=== PATIENT | female | born 1955 | race Caucasian/White ===

== ENCOUNTER 2017-03-20 20:10 | Emergency (ER) | payer MEDICAID ==
[2017-03-20 20:18] VITALS: BP 158/69; BMI 33.5
== END 2017-03-20 20:30 | disposition left against medical advice (07) ==
LOC: ER 20:10
DX: R10.84 Generalized abdominal pain (principal)
CPT/HCPCS: 99281

== ENCOUNTER 2017-05-22 15:18 | Emergency (ER) | payer MEDICAID ==
[2017-05-22 15:27] VITALS: BP 142/73; BMI 33.6
--- NOTE | 2017-05-22 16:02 | ED.ABDFE ---
HPI - Time seen Time seen: 15:55 - PCP Primary Care Physician: BONILLA SALAZAR - Complaint Chief Complaint Doctors Comments: Patient admits to a history of constipation using stimulants daily. Chief Complaint:: PT I HAVE BEEN HURTING IN MY ABD FOR A WHILE AND IT HAS JUST BEEN GETTING WORSE.. PT HAS HX DIVERTICULITIS,, - Source History Provided: Patient - Mode of arrival Mode of Arrival: Ambulatory - Timing Onset of Chief Complaint: 05/18/17 PMH - PMH Past Medical History: Yes Past Medical History: Anxiety, Depression, GERD, Hypertension Past Surgical History: Yes Surgical History: Cholecystectomy, COMMUNITY LIAISON Surgery, Other - Family History History of Family Medical Conditions: Yes Family Medical History: Cancer, [place], Coronary Artery Disease, Hypertension - Social History Does patient currently use any type of tobacco product: No Have you used tobacco products in the last 12 months: No Type of Tobacco Use: None Does any household member use tobacco: No Alcohol Use: None Do you use any recreational Drugs:: No Lives With: Family Lives Where: Home - infectious screening In the last 2 months have you had wt loss of >10#?: NO Have you had fever, night sweats or hemotysis?: No Have you traveled outside the country in the last 6 months?: No Isolation: Standard ROS - Review of Systems Eyes: No Symptoms Reported ENTM: No Symptoms Reported Respiratoy: No Symptoms Reported Cardiovascular: No Symptoms Reported Gastrointestinal/Abdominal: No Symptoms Reported Genitourinary: No Symptoms Reported Neurological: No Symptoms Reported Musculoskeletal: No Symptoms Reported Integumentary: No Symptoms Reported Hematologic/Lymphatic: No Symptoms Reported Endocrine: No Symptoms Reported Psychiatric: No Symptoms Reported All Other Systems: Reviewed and Negative PE - Vital Signs Vitals: Temperature 98.6 F Pulse Rate 76 Respiratory Rate 18 Blood Pressure [Left Arm] 184/84 Blood Pressure [Right Arm] 184/82 Blood Pressure 142/73 O2 Sat by Pulse Oximetry 97 - General Limitations: No Limitations General Appearance: Alert, In No Apparent Distress - Head Head Exam: Normal Inspection, Atraumatic - Eyes Eye exam: Normal Appearance, PERRL, EOMI - ENT ENT Exam: Normal Exam - Neck Neck Exam: Normal Inspection - Chest Chest Inspection: Normal Inspection - Respiratory Respiratory Exam: Normal Lung Sounds Bilat Respiratory Exam: Bilateral Clear to Auscultation - Cardiovascular Cardiovascular Exam: Regular Rate, Normal Rhythm - Abdominal Exam Abdominal Exam: Normal Inspection, Normal Bowel Sounds Abdominal Tenderness: Suprapubic. negative: RUQ, RLQ, LUQ, LLQ, Epigastrium, Diffuse, Mild, Moderate, Severe, Other - Rectal Rectal Exam: Deferred - Back Back Exam: Normal Inspection - Extremeties Extremities Exam: Normal Inspection, Full ROM - External Exam: Female: Normal External Exam : Speculum Exam (Female): Normal Speculum Exam : Bimanual Exam (female): Normal Bimanual exam - Neurologic Neurological Exam: Alert, Oriented X3, CN II-XII Intact - Psychiatric Psychiatric Exam: Normal Affect, Normal Mood - Skin Skin Exam: Warm, Dry, Intact ROR - Labs Reviewed Result Diagrams: 05/22/17 16:20 05/22/17 16:20 Laboratory: WBC 13.5 X10^3/uL (3.6-10.0) H 05/22/17 16:20 RBC 4.32 X10^6/uL (3.5-5.4) 05/22/17 16:20 Hgb 12.6 g/dL (12.0-16.0) 05/22/17 16:20 Hct 37.5 % (36.0-47.0) 05/22/17 16:20 MCV 86.8 fL (80.0-100.0) 05/22/17 16:20 MCH 29.1 pg (27.0-34.0) 05/22/17 16:20 MCHC 33.5 g/dL (33.0-35.0) 05/22/17 16:20 RDW 14.7 % (11.6-16.5) 05/22/17 16:20 Plt Count 321 X10^3/uL (150.0-450.0) 05/22/17 16:20 MPV 8.4 fL (7.4-11.0) 05/22/17 16:20 Neut % 75.9 % (42.0-75.0) H 05/22/17 16:20 Lymph % 16.7 % (21.0-51.0) L 05/22/17 16:20 Wheeler % 5.7 % (0.0-13.0) 05/22/17 16:20 Eos % 0.8 % (0.9-2.9) L 08/13/17 16:20 Baso % 0.9 % (0.2-1.0) 05/22/17 16:20 Neut # 10.2 x10^3/uL (2.2-4.8) H 05/22/17 16:20 Lymph # 2.3 X10^3/uL (1.3-2.9) 05/22/17 16:20 Wheeler # 0.8 x10^3/uL (0.3-0.8) 05/22/17 16:20 Eos # 0.1 x10^3/uL (0.0-0.2) 05/22/17 16:20 Baso # 0.1 X10^3/uL (0.0-0.1) 05/22/17 16:20 Absolute Nucleated RBC 0.0 /100WBC 05/22/17 16:20 Sodium 139 mmol/L (136-145) 05/22/17 16:20 Corrected Sodium TNP 05/22/17 16:20 Potassium 3.6 mmol/L (3.5-5.1) 05/22/17 16:20 Chloride 103 mmol/L (98-107) 05/22/17 16:20 Carbon Dioxide 30.3 mmol/L (21-32) 05/22/17 16:20 BUN 29 mg/dL (7-18) H 05/22/17 16:20 Creatinine 1.17 mg/dL (0.55-1.02) H 05/22/17 16:20 Est GFR (MDRD) Af Amer > 60 (>60) 05/22/17 16:20 Est GFR (MDRD) Non-Af 50 (>60) L 05/22/17 16:20 Glucose 100 mg/dL (65-99) H 05/22/17 16:20 Calcium 9.4 mg/dL (8.5-10.1) 05/22/17 16:20 Corrected Calcium TNP 05/22/17 16:20 Total Bilirubin 0.50 mg/dL (0.2-1.0) 05/22/17 16:20 AST 23 Units/L (15-37) 05/22/17 16:20 ALT 24 Units/L (12-78) 05/22/17 16:20 Alkaline Phosphatase 43 Units/L (46-116) L 05/22/17 16:20 Total Protein 8.0 g/dL (6.4-8.2) 05/22/17 16:20 Albumin 3.7 g/dL (3.4-5.0) 05/22/17 16:20 Globulin 4.3 g/dL (2.5-4.5) 05/22/17 16:20 Albumin/Globulin Ratio 0.9 Ratio (1.1-2.1) L 05/22/17 16:20 Amylase 53 Units/L (25-115) 05/22/17 16:20 Lipase 225 Units/L (73-393) 05/22/17 16:20 Specimen Type Clean catch urine 05/22/17 16:18 Urine Color Yellow (YELLOW) 05/22/17 16:18 Urine Appearance Hazy (CLEAR) 05/22/17 16:18 Urine pH 6.5 (5.0 - 8.0) 05/22/17 16:18 Ur Specific [place] 1.010 (1.000-1.030) 05/22/17 16:18 Urine Protein Negative (NEGATIVE) 05/22/17 16:18 Urine Glucose (UA) Negative (NEGATIVE) 05/22/17 16:18 Urine Ketones Negative (NEGATIVE) 05/22/17 16:18 Urine Occult Blood 2+ (NEGATIVE) 05/22/17 16:18 Urine Nitrite Negative (NEGATIVE) 05/22/17 16:18 Urine Bilirubin Negative (NEGATIVE) 05/22/17 16:18 Urine Urobilinogen Normal (NORMAL) 05/22/17 16:18 Ur Leukocyte Esterase 1+ (NEGATIVE) 05/22/17 16:18 Urine RBC 3-5 /HPF (NEGATIVE) 05/22/17 16:18 Urine WBC 0-2 /HPF (NEGATIVE) 05/22/17 16:18 Ur Squamous Epith Cells Rare /HPF (NEGATIVE) 05/22/17 16:18 Urine Bacteria Trace /HPF (NEGATIVE) 05/22/17 16:18 Ur Culture Indicated? No/not indicated 05/22/17 16:18 H. pylori IgG Antibody Negative (NEGATIVE) 05/22/17 16:20 - XRAY XRAY Interpreted by: Radiologist (KUB: negative) - Diagnosis Discharge Problem: UTI (urinary tract infection) Qualifiers: Urinary tract infection type: acute cystitis Hematuria presence: without hematuria Qualified Code(s): N30.00 - Acute cystitis without hematuria Constipation Qualifiers: Constipation type: slow transit constipation Qualified Code(s): K59.01 - Slow transit constipation - Discharge Plan Condition: Stable - Follow ups/Referrals Follow ups/Referrals: MELANI CRYSTAL [Primary Care Provider] - 3 days - Instructions
[2017-05-22 16:29] LABS: BILIRUBIN,URINE NEGATIVE (NEGATIVE); BLOOD/HEMOGLOBIN,URINE 2+ (NEGATIVE); GLUCOSE, URINE NEGATIVE (NEGATIVE); KETONES,URINE NEGATIVE (NEGATIVE); LEUKOCYTE ESTERASE ,URINE 1+ (NEGATIVE); NITRITES,URINE NEGATIVE (NEGATIVE); PH,URINE 6.5 (5.0 - 8.0); PROTEIN,URINE NEGATIVE (NEGATIVE); UROBILINOGEN,URINE NORMAL (NORMAL)
--- NOTE | 2017-05-22 16:37 | RAD ---
HISTORY: Pain Study: KUB Comparison: None Findings: The gas pattern is unremarkable. No renal stones are seen. There are surgical clips along the right upper quadrant and right pelvis. There is no free air and the bones are intact. IMPRESSION: 1. No evidence for acute abdominal pathology identified. Reported By:
[2017-05-22 16:38] LABS: APPEARANCE,URINE HAZY (CLEAR); COLOR,URINE YELLOW (YELLOW)
[2017-05-22 16:39] LABS: BACTERIA,URINE TRACE /HPF (NEGATIVE); SQUAMOUS EPITHELIAL CELL,UR RARE /HPF (NEGATIVE)
[2017-05-22 16:41] LABS: BASOPHILS # (AUTO) 0.1 X10^3/uL (0.0-0.1); BASOPHILS % (AUTO) 0.9 % (0.2-1.0); EOSINOPHILS # (AUTO) 0.1 x10^3/uL (0.0-0.2); EOSINOPHILS % (AUTO) 0.8 % (0.9-2.9); HEMATOCRIT 37.5 % (36.0-47.0); HEMOGLOBIN 12.6 g/dL (12.0-16.0); LYMPHOCYTES # (AUTO) 2.3 X10^3/uL (1.3-2.9); LYMPHOCYTES % (AUTO) 16.7 % (21.0-51.0); MEAN CORPUSCULAR HEMOGLOBIN 29.1 pg (27.0-34.0); MEAN CORPUSCULAR HGB CONC 33.5 g/dL (33.0-35.0); MEAN CORPUSCULAR VOLUME 86.8 fL (80.0-100.0); MEAN PLATELET VOLUME 8.4 fL (7.4-11.0); MONOCYTES # (AUTO) 0.8 x10^3/uL (0.3-0.8); MONOCYTES % (AUTO) 5.7 % (0.0-13.0); NEUTROPHILS # (AUTO) 10.2 x10^3/uL (2.2-4.8); NEUTROPHILS % (AUTO) 75.9 % (42.0-75.0); PLATELET COUNT 321 X10^3/uL (150.0-450.0); RED BLOOD COUNT 4.32 X10^6/uL (3.5-5.4); RED CELL DISTRIBUTION WIDTH 14.7 % (11.6-16.5); WHITE BLOOD COUNT 13.5 X10^3/uL (3.6-10.0)
[2017-05-22 16:53] LABS: AMYLASE 53 Units/L (25-115); LIPASE 225 Units/L (73-393)
[2017-05-22 16:55] LABS: ALANINE AMINOTRANSFERASE 24 Units/L (12-78); ALBUMIN 3.7 g/dL (3.4-5.0); ALKALINE PHOSPHATASE 43 Units/L (46-116); ASPARTATE AMINO TRANSFERASE 23 Units/L (15-37); BLOOD UREA NITROGEN 29 mg/dL (7-18); CALCIUM 9.4 mg/dL (8.5-10.1); CARBON DIOXIDE 30.3 mmol/L (21-32); CHLORIDE 103 mmol/L (98-107); CREATININE 1.17 mg/dL (0.55-1.02); GLUCOSE 100 mg/dL (65-99); SODIUM 139 mmol/L (136-145); eGFR BLACK RACES > 60 (>60); eGFR NON BLACK RACES 50 (>60)
[2017-05-22] MEDS ORDERED: BACTRIM DS TAB PO ONE (17:51)
== END 2017-05-22 17:54 | disposition home or self-care (01) ==
LOC: ER 15:34
DX: N30.00 Acute cystitis without hematuria (principal); K59.01 Slow transit constipation
CPT/HCPCS: 36415; 74000; 80053; 81001; 82150; 83690; 85025; 86677; 99282; 99283

== ENCOUNTER → 2017-05-24 | Outpatient (CLI) | payer MEDICAID ==
[2017-05-22 15:27] VITALS: BP 142/73
== END ==
LOC: LAB 16:04
PROVIDERS: ATTEND Obstetrics & Gynecology Obstetrics
DX: R30.0 Dysuria (principal)
CPT/HCPCS: 87086

== ENCOUNTER 2017-05-25 17:26 | Inpatient (IN) | payer MEDICAID ==
[2017-05-25] MEDS ORDERED: DEMEROL INJ IM ONE (18:12)
[2017-05-25] MEDS ORDERED: ZOFRAN INJ 4 MG VIAL IM ONE (18:12)
--- NOTE | 2017-05-25 18:13 | DR.GENAD ---
HPI - PCP Primary Care Physician: BONILLA - HPI Comment HPI Comment: HISTORY BELOW. - Complaint/Symptoms Chief Complaint Doctors Comments: ABDOMINA PAIN WITH NAUSEA, VOMITING AND CONSTIPATION TIMES 3 DAYS. WORSE TODAY. NOT EATING, NOT KEEPING DOWN FLUID. NOT TAKEN DAILY MEDS TODAY. WAS IN ED 3 DAYS AGO WITH DIARRHEA. Chief Complaint:: PATIENT WAS SEEN IN OUR ER 3 DAYS AGO WITH A COMPLAINT OF DIARRHEA. PATIENT STATED SHE HAS NOT HAD A BOWEL MOVEMENT SINCE THEN THEN. 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, Other - Family History History of Family Medical Conditions: Yes Family Medical History: Cancer, [place], Coronary Artery Disease, Hypertension - Social History Does patient currently use any type of tobacco product: No Have you used tobacco products in the last 12 months: No Type of Tobacco Use: None Does any household member use tobacco: No Alcohol Use: None Do you use any recreational Drugs:: No Lives With: Family Lives Where: Home - infectious screening In the last 2 months have you had wt loss of >10#?: NO Have you had fever, night sweats or hemotysis?: No Have you traveled outside the country in the last 6 months?: No Isolation: Standard ROS - Review of Systems Constitutional: Weakness, Fatigue, Loss of Appetite. negative: Chills, Fever Eyes: No Symptoms Reported ENTM: No Symptoms Reported. negative: Ear Pain, Nose Discharge, Nose Congestion , Throat Pain Respiratoy: No Symptoms Reported. negative: Productive Cough, Non-Productive Cough, Short of Breath, Wheezing, Hemoptysis Cardiovascular: No Symptoms Reported. negative: Chest Pain, Edema Gastrointestinal/Abdominal: Abdominal Pain, Constipation, Nausea, Vomiting Genitourinary: No Symptoms Reported. negative: Dysuria, Frequency, Hematuria Neurological: Headache, Weakness, Dizziness Musculoskeletal: Muscle Pain Integumentary: No Symptoms Reported Hematologic/Lymphatic: No Symptoms Reported Endocrine: No Symptoms Reported All Other Systems: Reviewed and Negative PE - Vital Signs Vitals: Pulse Rate 69 Respiratory Rate 16 Blood Pressure [Left Arm] 184/84 Blood Pressure [Right Arm] 184/82 Blood Pressure 147/74 O2 Sat by Pulse Oximetry 97 - General Limitations: No Limitations General Appearance: Alert - Head Head Exam: Normal Inspection - Eyes Eye exam: Normal Appearance - ENT ENT Exam: Normal External Ear Exam External Ear Exam: Normal External Inspection TM/Canal Exam: Bilateral Normal Nose Exam: Normal Nose Exam Mouth Exam: Normal Inspection Throat Exam: Normal Inspection - Neck Neck Exam: Normal Inspection - Chest Chest Inspection: Symmetric Chest Wall Rise - Respiratory Respiratory Exam: Normal Lung Sounds Bilat Respiratory Exam: Bilateral Rhonchi, Lower Rhonchi - Cardiovascular Cardiovascular Exam: Regular Rate, Normal Rhythm, Normal Heart Sounds - Abdominal Exam Abdominal Exam: Normal Bowel Sounds, Soft, Tenderness Abdominal Tenderness: Diffuse, Moderate - Extremities Extremities Exam: Normal Inspection - Back Back Exam: Normal Inspection - Neurologic Neurological Exam: Alert, Oriented X3, CN II-XII Intact, Reflexes Normal. negative: Motor Sensory Deficit - Psychiatric Psychiatric Exam: Anxious - Skin Skin Exam: Dry MDM - Additional Information Additional Information Obtained From: Family - Differential Diagnosis Differential Diagnosis: ABDOMINAL PAIN, NAUSEA/VOMITING, BOWEL OBSTRUCTION, DIVERTICULOSIS, UTI Course - Treatment Treatment: SEE ORDERS - Consultation Consultation Comments: DISCUSS PATIENT WITH DR. MUNSON. HE WILL ADMIT PATIENT. - Education/Counseling Education/Counseling: Patient, Education Educated On: Treatment, Diagnosis, Needs for Follow Up ROR - Labs Reviewed Laboratory Results Reviewed?: Yes Result Diagrams: 05/25/17 18:18 05/25/17 18:18 Laboratory: WBC 4.9 X10^3/uL (3.6-10.0) 05/25/17 18:18 RBC 4.08 X10^6/uL (3.5-5.4) 05/25/17 18:18 Hgb 12.1 g/dL (12.0-16.0) 05/25/17 18:18 Hct 35.4 % (36.0-47.0) L 05/25/17 18:18 MCV 86.9 fL (80.0-100.0) 05/25/17 18:18 MCH 29.7 pg (27.0-34.0) 05/25/17 18:18 MCHC 34.2 g/dL (33.0-35.0) 05/25/17 18:18 RDW 14.5 % (11.6-16.5) 05/25/17 18:18 Plt Count 327 X10^3/uL (150.0-450.0) 05/25/17 18:18 MPV 8.5 fL (7.4-11.0) 05/25/17 18:18 Neut % 79.2 % (42.0-75.0) H 05/25/17 18:18 Lymph % 11.1 % (21.0-51.0) L 05/25/17 18:18 [place] % 5.8 % (0.0-13.0) 05/25/17 18:18 Eos % 3.0 % (0.9-2.9) H 05/25/17 18:18 Baso % 0.9 % (0.2-1.0) 05/25/17 18:18 Neut # 3.9 x10^3/uL (2.2-4.8) 05/25/17 18:18 Lymph # 0.6 X10^3/uL (1.3-2.9) L 05/25/17 18:18 [place]ver # 0.3 x10^3/uL (0.3-0.8) 05/25/17 18:18 Eos # 0.1 x10^3/uL (0.0-0.2) 05/25/17 18:18 Baso # 0.0 X10^3/uL (0.0-0.1) 05/25/17 18:18 Absolute Nucleated RBC 0.0 /100WBC 05/25/17 18:18 Sodium 136 mmol/L (136-145) 05/25/17 18:18 Corrected Sodium TNP 05/25/17 18:18 Potassium 3.9 mmol/L (3.5-5.1) 05/25/17 18:18 Chloride 100 mmol/L (98-107) 05/25/17 18:18 Carbon Dioxide 26.8 mmol/L (21-32) 05/25/17 18:18 BUN 40 mg/dL (7-18) H 05/25/17 18:18 Creatinine 1.76 mg/dL (0.55-1.02) H 05/25/17 18:18 Est GFR (MDRD) Af Amer 38 (>60) L 05/25/17 18:18 Est GFR (MDRD) Non-Af 31 (>60) L 05/25/17 18:18 Glucose 90 mg/dL (65-99) 05/25/17 18:18 Calcium 9.2 mg/dL (8.5-10.1) 05/25/17 18:18 Corrected Calcium 9.8 mg/dL (8.5-10.1) 05/25/17 18:18 Total Bilirubin 0.50 mg/dL (0.2-1.0) 05/25/17 18:18 AST 78 Units/L (15-37) H 05/25/17 18:18 ALT 60 Units/L (12-78) 05/25/17 18:18 Alkaline Phosphatase 47 Units/L (46-116) 05/25/17 18:18 Total Protein 7.8 g/dL (6.4-8.2) 05/25/17 18:18 Albumin 3.2 g/dL (3.4-5.0) L 05/25/17 18:18 Globulin 4.6 g/dL (2.5-4.5) H 05/25/17 18:18 Albumin/Globulin Ratio 0.7 Ratio (1.1-2.1) L 05/25/17 18:18 Amylase 31 Units/L (25-115) 05/25/17 18:18 Lipase 127 Units/L (73-393) 05/25/17 18:18 - XRAY XRAY Interpreted by: Radiologist XRAY Findings: REPORT DISCUSS WITH PATIENT. - Diagnosis Discharge Problem: Diverticulitis Qualifiers: Diverticulitis site: large intestine Diverticulitis bleeding: without bleeding Diverticulitis complication: without perforation or abscess Qualified Code(s): K57.32 - Diverticulitis of large intestine without perforation or abscess without bleeding Abdominal pain Qualifiers: Abdominal location: generalized Qualified Code(s): R10.84 - Generalized abdominal pain - Discharge Plan Disposition: ADMITTED INPATIENT Condition: Stable - Follow ups/Referrals - Instructions
[2017-05-25 18:27] LABS: BASOPHILS % (AUTO) 0.9 % (0.2-1.0); EOSINOPHILS # (AUTO) 0.1 x10^3/uL (0.0-0.2); HEMATOCRIT 35.4 % (36.0-47.0); HEMOGLOBIN 12.1 g/dL (12.0-16.0); LYMPHOCYTES # (AUTO) 0.6 X10^3/uL (1.3-2.9); LYMPHOCYTES % (AUTO) 11.1 % (21.0-51.0); MEAN CORPUSCULAR HEMOGLOBIN 29.7 pg (27.0-34.0); MEAN CORPUSCULAR HGB CONC 34.2 g/dL (33.0-35.0); MEAN CORPUSCULAR VOLUME 86.9 fL (80.0-100.0); MEAN PLATELET VOLUME 8.5 fL (7.4-11.0); MONOCYTES # (AUTO) 0.3 x10^3/uL (0.3-0.8); MONOCYTES % (AUTO) 5.8 % (0.0-13.0); NEUTROPHILS # (AUTO) 3.9 x10^3/uL (2.2-4.8); NEUTROPHILS % (AUTO) 79.2 % (42.0-75.0); PLATELET COUNT 327 X10^3/uL (150.0-450.0); RED BLOOD COUNT 4.08 X10^6/uL (3.5-5.4); RED CELL DISTRIBUTION WIDTH 14.5 % (11.6-16.5); WHITE BLOOD COUNT 4.9 X10^3/uL (3.6-10.0)
[2017-05-25 18:39] LABS: ALANINE AMINOTRANSFERASE 60 Units/L (12-78); ALBUMIN 3.2 g/dL (3.4-5.0); ALKALINE PHOSPHATASE 47 Units/L (46-116); AMYLASE 31 Units/L (25-115); ASPARTATE AMINO TRANSFERASE 78 Units/L (15-37); BLOOD UREA NITROGEN 40 mg/dL (7-18); CALCIUM 9.2 mg/dL (8.5-10.1); CARBON DIOXIDE 26.8 mmol/L (21-32); CHLORIDE 100 mmol/L (98-107); COR CA(FOR HYPOALB) 9.8 mg/dL (8.5-10.1); CREATININE 1.76 mg/dL (0.55-1.02); GLUCOSE 90 mg/dL (65-99); LIPASE 127 Units/L (73-393); SODIUM 136 mmol/L (136-145); TOTAL PROTEIN 7.8 g/dL (6.4-8.2); eGFR BLACK RACES 38 (>60); eGFR NON BLACK RACES 31 (>60)
--- NOTE | 2017-05-25 19:01 | CT ---
HISTORY: Pain Study: CT abdomen and pelvis without contrast Comparison: 10/22/2015 Technique: Multiple axial images of the abdomen and pelvis were obtained from the lung bases to the pubic symph ysis without the administration of IV contrast. Automated dose control techniques were utilized. Findings: The lung bases are clear. The liver and spleen are normal size and density. The gallbladder has been removed with clips in the gallbladder fossa which is unchanged. The bile ducts, pancreas, and adren als are normal. The kidneys are normal size with no hydronephrosis, renal stone, or mass. The ureter s are normal caliber. There is no adenopathy or ascites. The appendix is not well visualized and the re is no pericecal inflammation. The uterus and ovaries are grossly unremarkable. There are divertic phill scattered throughout the left colon with numerous diverticula and mucosal thickening throughout the sigmoid colon . There is mild stranding and edema around the mid sigmoid colon on the left with mild stranding and edema extending into the left lower pelvis . No extraluminal air is seen . There is no free fluid or free air. No focal fluid collection or mass is seen. The uterus is atrophic and there is no adnexal mass. The bladder is unremarkable. There is no bowel obstruction. The bones are intact. No aggressive osseous lesion is seen. There are some questionable mild serpiginous areas of lucency and sclerosis along both femoral heads superiorly which is slightly more apparent. IMPRESSION: Moderate diverticulosis along the sigmoid region and mild diverticulitis involving the mid sigmoid c olon extending into the left pelvis . No abscess or free fluid is identified. Suggest endoscopy or b arium enema after the patient's symptoms resolve. Status post cholecystectomy which is unchanged. No hydronephrosis or renal stones and no urinary obstruction. Questionable chronic AVN along both femoral heads which is more apparent . Suggest MRI correlation, if indicated clinically.. Reported By:
[2017-05-25] MEDS ORDERED: NS 100 ML IV + SPIKE MINIBAG* 100 ML IV ONE (21:06)
[2017-05-25] MEDS ORDERED: NS 1000 ML 1,000 ML ONE (21:06)
[2017-05-25] MEDS ORDERED: ZOSYN VIAL 3.375 GM IV ONE (21:06)
[2017-05-25] MEDS: ZOSYN VIAL 3.375 GM 3.375 GM in NS 100 ML IV + SPIKE MINIBAG* 100 ML IV SCH (21:14)
[2017-05-25] MEDS: NS 1000 ML 1,000 ML IV SCH (21:15)
[2017-05-25] MEDS: AMBIEN PO PRN (22:39)
[2017-05-26] MEDS: PHENERGAN INJ 25 MG IVP PRN (00:46)
[2017-05-26] MEDS: MORPHINE SULFATE INJ 2 MG IVP PRN ×2 (02:43→20:30)
[2017-05-26] MEDS: ZOSYN VIAL 3.375 GM 3.375 GM in NS 100 ML IV + SPIKE MINIBAG* 100 ML IV SCH ×3 (05:07→22:11)
[2017-05-26] MEDS: ZOFRAN INJ 4 MG VIAL IVP PRN ×2 (05:28→15:29)
[2017-05-26 06:05] LABS: ALANINE AMINOTRANSFERASE 61 Units/L (12-78); ALBUMIN 2.9 g/dL (3.4-5.0); ALKALINE PHOSPHATASE 43 Units/L (46-116); ASPARTATE AMINO TRANSFERASE 77 Units/L (15-37); BLOOD UREA NITROGEN 40 mg/dL (7-18); CALCIUM 8.7 mg/dL (8.5-10.1); CARBON DIOXIDE 27.5 mmol/L (21-32); CHLORIDE 101 mmol/L (98-107); COR CA(FOR HYPOALB) 9.6 mg/dL (8.5-10.1); CREATININE 1.77 mg/dL (0.55-1.02); GLUCOSE 81 mg/dL (65-99); SODIUM 136 mmol/L (136-145); TOTAL PROTEIN 7.1 g/dL (6.4-8.2); eGFR BLACK RACES 38 (>60); eGFR NON BLACK RACES 31 (>60)
[2017-05-26 06:10] LABS: BASOPHILS % (AUTO) 1.2 % (0.2-1.0); EOSINOPHILS # (AUTO) 0.2 x10^3/uL (0.0-0.2); EOSINOPHILS % (AUTO) 4.7 % (0.9-2.9); HEMATOCRIT 32.6 % (36.0-47.0); HEMOGLOBIN 11.1 g/dL (12.0-16.0); LYMPHOCYTES # (AUTO) 0.8 X10^3/uL (1.3-2.9); LYMPHOCYTES % (AUTO) 22.6 % (21.0-51.0); MEAN CORPUSCULAR HEMOGLOBIN 29.5 pg (27.0-34.0); MEAN CORPUSCULAR VOLUME 86.8 fL (80.0-100.0); MONOCYTES # (AUTO) 0.3 x10^3/uL (0.3-0.8); NEUTROPHILS # (AUTO) 2.4 x10^3/uL (2.2-4.8); NEUTROPHILS % (AUTO) 63.5 % (42.0-75.0); PLATELET COUNT 287 X10^3/uL (150.0-450.0); RED BLOOD COUNT 3.76 X10^6/uL (3.5-5.4); RED CELL DISTRIBUTION WIDTH 14.7 % (11.6-16.5); WHITE BLOOD COUNT 3.8 X10^3/uL (3.6-10.0)
[2017-05-26] MEDS: NS 1000 ML 1,000 ML IV SCH ×2 (09:02→17:11)
[2017-05-26 09:19] LABS: CHOL/HDL RATIO 13.9 (0.0-5.0)
[2017-05-26] MEDS ORDERED: BISOPROLOL PO SCH (09:30)
[2017-05-26] MEDS ORDERED: PATIENT'S HOME MEDICATION (Losartan/Hydrochlorothiazide [Hyzaar 100-25 Tablet] 1 TAB) PO SCH (09:30)
[2017-05-26] MEDS ORDERED: HYDROCHLOROTHIAZIDE PO SCH (09:30)
--- NOTE | 2017-05-26 10:07 | US ---
HISTORY: Elevated transaminase level, abdominal pain, prior surgical history of cholecystectomy. Study: Liver ultrasound Comparison: CT abdomen and pelvis done May 25, 2017. Technique: owusu scale and color Doppler imaging of the liver is provided. Findings: The liver is normal in size. There is a slight diffuse increased echogenic appearance of the liver c ompatible with mild steatosis. No evidence of liver mass or ductal ectasia is seen. Common bile duct measures 4 millimeters in diameter. Color Doppler studies normal. Gallbladder surgically absent. Ri ght kidney is normal and measures 5.2 x 6.8 x 9.1 centimeters. No evidence of renal mass, stone or h ydronephrosis is seen. Doppler studies of the right renal artery normal. IMPRESSION: Mild fatty liver. No liver mass or ductal ectasia is seen. Surgically absent gallbladder. Reported By:
[2017-05-26] MEDS: PriLOSEC PO SCH (11:43)
[2017-05-26] MEDS: ZEBETA TAB 5 MG PO SCH (11:43)
[2017-05-26 13:48] VITALS: BMI 32.9
[2017-05-26] MEDS: MIRALAX POWDER (255 GM BTL) PO SCH (15:27)
[2017-05-26] MEDS ORDERED: NS 250 ML IV 250 ML IV ONE (15:33)
[2017-05-26] MEDS: AMBIEN PO PRN (20:31)
[2017-05-26] MEDS ORDERED: ZOLPIDEM TARTRATE PO SCH (21:00)
[2017-05-27] MEDS: NS 1000 ML 1,000 ML IV SCH ×2 (05:20→16:35)
[2017-05-27] MEDS: ZOSYN VIAL 3.375 GM 3.375 GM in NS 100 ML IV + SPIKE MINIBAG* 100 ML IV SCH ×4 (05:20→21:01)
[2017-05-27] MEDS: ZOFRAN INJ 4 MG VIAL IVP PRN ×2 (07:31→18:28)
[2017-05-27] MEDS: PriLOSEC PO SCH (09:46)
[2017-05-27] MEDS: HYZAAR 50/12.5 MG PO SCH (09:47)
[2017-05-27] MEDS: ZEBETA TAB 5 MG PO SCH (09:47)
[2017-05-27] MEDS: NORVASC TAB 5 MG PO SCH (09:48)
[2017-05-27] MEDS: XANAX PO PRN ×2 (11:30→19:36)
[2017-05-27] MEDS: MIRALAX POWDER (255 GM BTL) PO SCH (12:09)
[2017-05-27] MEDS: COLACE CAP 100 MG PO SCH ×2 (12:09→20:52)
[2017-05-27] MEDS: ZIAC 5/6.25 MG PO SCH (12:20)
[2017-05-27] MEDS ORDERED: ZIAC 5/6.25 MG PO SCH (13:00)
[2017-05-27] MEDS: AMBIEN PO PRN (20:59)
[2017-05-27 21:11] LABS: HEPATITIS A ANTIBODY IGM Negative (Negative)
[2017-05-28] MEDS: NS 1000 ML 1,000 ML IV SCH ×5 (02:29→20:37)
[2017-05-28] MEDS: MORPHINE SULFATE INJ 2 MG IVP PRN ×2 (03:24→15:46)
[2017-05-28] MEDS: ZOFRAN INJ 4 MG VIAL IVP PRN (03:28)
[2017-05-28] MEDS: ZOSYN VIAL 3.375 GM 3.375 GM in NS 100 ML IV + SPIKE MINIBAG* 100 ML IV SCH ×3 (05:16→21:15)
[2017-05-28 06:24] LABS: BASOPHILS % (AUTO) 0.9 % (0.2-1.0); EOSINOPHILS # (AUTO) 0.1 x10^3/uL (0.0-0.2); HEMATOCRIT 31.4 % (36.0-47.0); HEMOGLOBIN 10.7 g/dL (12.0-16.0); LYMPHOCYTES # (AUTO) 1.7 X10^3/uL (1.3-2.9); LYMPHOCYTES % (AUTO) 41.7 % (21.0-51.0); MEAN CORPUSCULAR HEMOGLOBIN 29.5 pg (27.0-34.0); MEAN CORPUSCULAR VOLUME 86.8 fL (80.0-100.0); MEAN PLATELET VOLUME 8.7 fL (7.4-11.0); MONOCYTES # (AUTO) 0.4 x10^3/uL (0.3-0.8); MONOCYTES % (AUTO) 10.6 % (0.0-13.0); NEUTROPHILS # (AUTO) 1.8 x10^3/uL (2.2-4.8); NEUTROPHILS % (AUTO) 44.8 % (42.0-75.0); PLATELET COUNT 300 X10^3/uL (150.0-450.0); RED BLOOD COUNT 3.62 X10^6/uL (3.5-5.4); RED CELL DISTRIBUTION WIDTH 14.4 % (11.6-16.5)
[2017-05-28] MEDS: ZIAC 5/6.25 MG PO SCH (08:31)
[2017-05-28] MEDS: PriLOSEC PO SCH (08:31)
[2017-05-28] MEDS: LINZESS PO SCH (08:32)
[2017-05-28] MEDS: HYZAAR 50/12.5 MG PO SCH (08:32)
[2017-05-28] MEDS: ZEBETA TAB 5 MG PO SCH ×2 (08:32→08:37)
[2017-05-28] MEDS: COLACE CAP 100 MG PO SCH ×2 (08:32→20:38)
[2017-05-28] MEDS: NORVASC TAB 5 MG PO SCH (08:33)
[2017-05-28] MEDS: MIRALAX POWDER (255 GM BTL) PO SCH (08:33)
[2017-05-28 11:11] LABS: ALANINE AMINOTRANSFERASE 48 Units/L (12-78); ALBUMIN 2.7 g/dL (3.4-5.0); ALKALINE PHOSPHATASE 39 Units/L (46-116); ASPARTATE AMINO TRANSFERASE 45 Units/L (15-37); BLOOD UREA NITROGEN 24 mg/dL (7-18); CALCIUM 8.5 mg/dL (8.5-10.1); CARBON DIOXIDE 22.3 mmol/L (21-32); CHLORIDE 108 mmol/L (98-107); COR CA(FOR HYPOALB) 9.5 mg/dL (8.5-10.1); CREATININE 1.11 mg/dL (0.55-1.02); GLUCOSE 82 mg/dL (65-99); SODIUM 142 mmol/L (136-145); TOTAL PROTEIN 6.6 g/dL (6.4-8.2); eGFR BLACK RACES > 60 (>60); eGFR NON BLACK RACES 53 (>60)
[2017-05-28 11:28] LABS: HEPATITIS B CORE IGM Negative (Negative); HEPATITIS B SURFACE ANTIGEN Negative (Negative)
[2017-05-28] MEDS: XANAX PO PRN (20:38)
[2017-05-28] MEDS: AMBIEN PO PRN (20:38)
[2017-05-29] MEDS: ZOSYN VIAL 3.375 GM 3.375 GM in NS 100 ML IV + SPIKE MINIBAG* 100 ML IV SCH ×3 (05:29→21:10)
[2017-05-29] MEDS: NS 1000 ML 1,000 ML IV SCH ×2 (05:31→15:53)
[2017-05-29 05:34] LABS: ALANINE AMINOTRANSFERASE 41 Units/L (12-78); ALBUMIN 2.7 g/dL (3.4-5.0); ALKALINE PHOSPHATASE 37 Units/L (46-116); ASPARTATE AMINO TRANSFERASE 30 Units/L (15-37); BLOOD UREA NITROGEN 21 mg/dL (7-18); CALCIUM 8.4 mg/dL (8.5-10.1); CARBON DIOXIDE 26.9 mmol/L (21-32); CHLORIDE 107 mmol/L (98-107); COR CA(FOR HYPOALB) 9.4 mg/dL (8.5-10.1); CREATININE 0.94 mg/dL (0.55-1.02); GLUCOSE 88 mg/dL (65-99); SODIUM 141 mmol/L (136-145); TOTAL PROTEIN 6.7 g/dL (6.4-8.2); eGFR BLACK RACES > 60 (>60); eGFR NON BLACK RACES > 60 (>60)
[2017-05-29 05:35] LABS: BASOPHILS # (AUTO) 0.1 X10^3/uL (0.0-0.1); EOSINOPHILS % (AUTO) 0.9 % (0.9-2.9); HEMATOCRIT 31.5 % (36.0-47.0); HEMOGLOBIN 10.6 g/dL (12.0-16.0); LYMPHOCYTES # (AUTO) 2.2 X10^3/uL (1.3-2.9); MEAN CORPUSCULAR HEMOGLOBIN 29.6 pg (27.0-34.0); MEAN CORPUSCULAR HGB CONC 33.8 g/dL (33.0-35.0); MEAN CORPUSCULAR VOLUME 87.5 fL (80.0-100.0); MEAN PLATELET VOLUME 8.7 fL (7.4-11.0); MONOCYTES # (AUTO) 0.5 x10^3/uL (0.3-0.8); MONOCYTES % (AUTO) 8.8 % (0.0-13.0); NEUTROPHILS # (AUTO) 2.7 x10^3/uL (2.2-4.8); NEUTROPHILS % (AUTO) 49.3 % (42.0-75.0); PLATELET COUNT 313 X10^3/uL (150.0-450.0); RED CELL DISTRIBUTION WIDTH 14.7 % (11.6-16.5); WHITE BLOOD COUNT 5.4 X10^3/uL (3.6-10.0)
--- NOTE | 2017-05-29 07:35 | RAD ---
ACUTE ABDOMEN SERIES CLINICAL HISTORY: Stool impaction. Abdominal pain. COMPARISON: CT abdomen pelvis May 25, 2017 FINDINGS: Moderate to large amount of stool in the colonic loops as before. Nonobstructive bowel gas pattern. Grossly unremarkable pulmonary parenchyma. Enlarged cardiac silhouette. No acute process in the osseous structures. IMPRESSION: Constipation. Non obstructive bowel gas pattern. Reported By:
[2017-05-29] MEDS: MORPHINE SULFATE INJ 2 MG IVP PRN ×2 (07:51→15:49)
[2017-05-29] MEDS: ZOFRAN INJ 4 MG VIAL IVP PRN ×3 (08:15→21:18)
[2017-05-29] MEDS: LINZESS PO SCH (08:17)
[2017-05-29] MEDS: HYZAAR 50/12.5 MG PO SCH (08:17)
[2017-05-29] MEDS: PriLOSEC PO SCH (08:17)
[2017-05-29] MEDS: ZIAC 5/6.25 MG PO SCH (08:17)
[2017-05-29] MEDS: MIRALAX POWDER (255 GM BTL) PO SCH (08:18)
[2017-05-29] MEDS: COLACE CAP 100 MG PO SCH ×2 (08:18→21:11)
[2017-05-29] MEDS: NORVASC TAB 5 MG PO SCH (08:18)
--- NOTE | 2017-05-29 10:38 | RAD ---
HISTORY: Pain and nausea Study: Abdomen supine one-view Comparison: May 22, 2017 Findings: Evaluation of the abdomen demonstrates a normal bowel gas pattern. No pathological soft tissue mass or calcification can be observed. The bony structures are grossly intact. Surgical clips are noted the gallbladder fossa. A fluid filled bladder is noted mid pelvis. IMPRESSION: 1. No evidence for acute abdominal pathology identified. Reported By:
[2017-05-29] MEDS: XANAX PO PRN (18:12)
[2017-05-29] MEDS: AMBIEN PO PRN (21:11)
[2017-05-30] MEDS: NS 1000 ML 1,000 ML IV SCH ×4 (03:00→22:23)
[2017-05-30] MEDS: ZOSYN VIAL 3.375 GM 3.375 GM in NS 100 ML IV + SPIKE MINIBAG* 100 ML IV SCH ×3 (05:13→21:00)
[2017-05-30 05:24] LABS: BASOPHILS # (AUTO) 0.1 X10^3/uL (0.0-0.1); BASOPHILS % (AUTO) 0.9 % (0.2-1.0); EOSINOPHILS % (AUTO) 0.4 % (0.9-2.9); HEMATOCRIT 32.6 % (36.0-47.0); HEMOGLOBIN 10.9 g/dL (12.0-16.0); LYMPHOCYTES # (AUTO) 2.3 X10^3/uL (1.3-2.9); LYMPHOCYTES % (AUTO) 34.2 % (21.0-51.0); MEAN CORPUSCULAR HEMOGLOBIN 29.1 pg (27.0-34.0); MEAN CORPUSCULAR HGB CONC 33.4 g/dL (33.0-35.0); MEAN CORPUSCULAR VOLUME 87.3 fL (80.0-100.0); MEAN PLATELET VOLUME 8.6 fL (7.4-11.0); MONOCYTES # (AUTO) 0.6 x10^3/uL (0.3-0.8); MONOCYTES % (AUTO) 8.6 % (0.0-13.0); NEUTROPHILS # (AUTO) 3.8 x10^3/uL (2.2-4.8); NEUTROPHILS % (AUTO) 55.9 % (42.0-75.0); PLATELET COUNT 345 X10^3/uL (150.0-450.0); RED BLOOD COUNT 3.74 X10^6/uL (3.5-5.4); RED CELL DISTRIBUTION WIDTH 14.7 % (11.6-16.5); WHITE BLOOD COUNT 6.8 X10^3/uL (3.6-10.0)
[2017-05-30 05:25] LABS: ALANINE AMINOTRANSFERASE 38 Units/L (12-78); ALBUMIN 2.8 g/dL (3.4-5.0); ALKALINE PHOSPHATASE 37 Units/L (46-116); ASPARTATE AMINO TRANSFERASE 28 Units/L (15-37); BLOOD UREA NITROGEN 24 mg/dL (7-18); CALCIUM 8.4 mg/dL (8.5-10.1); CARBON DIOXIDE 27.8 mmol/L (21-32); CHLORIDE 107 mmol/L (98-107); COR CA(FOR HYPOALB) 9.4 mg/dL (8.5-10.1); CREATININE 1.08 mg/dL (0.55-1.02); GLUCOSE 104 mg/dL (65-99); SODIUM 142 mmol/L (136-145); TOTAL PROTEIN 6.7 g/dL (6.4-8.2); eGFR BLACK RACES > 60 (>60); eGFR NON BLACK RACES 55 (>60)
[2017-05-30] MEDS: ZIAC 5/6.25 MG PO SCH (08:36)
[2017-05-30] MEDS: COLACE CAP 100 MG PO SCH ×2 (08:36→21:00)
[2017-05-30] MEDS: HYZAAR 50/12.5 MG PO SCH (08:36)
[2017-05-30] MEDS: LINZESS PO SCH (08:37)
[2017-05-30] MEDS: ZOFRAN INJ 4 MG VIAL IVP PRN ×2 (08:37→14:41)
[2017-05-30] MEDS: NORVASC TAB 5 MG PO SCH (08:37)
[2017-05-30] MEDS: PriLOSEC PO SCH (08:37)
[2017-05-30] MEDS: MIRALAX POWDER (255 GM BTL) PO SCH (08:57)
[2017-05-30] MEDS: XANAX PO PRN ×2 (08:57→21:00)
[2017-05-30] MEDS ORDERED: COZAAR PO SCH (10:00)
[2017-05-30] MEDS ORDERED: NS 100 ML IV 100 ML IV ONE (11:55)
[2017-05-30] MEDS ORDERED: COZAAR PO ONE (13:00)
[2017-05-30] MEDS: PHENERGAN INJ 25 MG IVP PRN (13:47)
--- NOTE | 2017-05-30 14:04 | CT ---
CTA ABDOMEN AND PELVIS WITH AND WITHOUT CONTRAST CLINICAL INDICATION: History of ischemic colitis. Abdominal pain. PROCEDURE: Noncontrast CTA images were initially obtained through the abdomen and pelvis. Followin g administration of non-ionic IV contrast, postcontrast CTA images were obtained through the abdomen and pelvis. 3D reconstructions were performed. Dose reduction techniques including Automated Expos ure Control (AEC) and adjustment of mA and kV were utlized. COMPARISON: 05/25/2017 showing diverticulitis. FINDINGS: Vascular: No aneurysms. Atherosclerotic calcification of the aorta and major branches.No dissection. No abrupt cut off to suggest arterial thrombosis. CTA Abdomen without contrast: No gallstones, renal stones or proximal ureteral stones. CTA Pelvis without contrast: No distal ureteral stones or bladder stones. CTA Abdomen with intravenous contrast: Liver and spleen are normal in size, enhancement characterist ics and contour. No focal lesions. The portal vein is patent. No ductal dilitation. gallbladder abse nt. The pancreas is unremarkable. Adrenal glands are normal. Kidneys enhance symmetrically without h ydronephrosis. Redemonstration of sigmoid diverticulosis with focal inflammation. No evidence of perforation or abs cess formation No abnormal appearing mesenteric or retroperitoneal lymph nodes. No free fluid or flu id collections. CTA Pelvis with contrast: The bladder is normal in appearance. Uterus and ovaries present. No free f luid or abnormal pelvic lymph nodes. No aggressive osseous lesions. IMPRESSION: 1. No evidence of ischemic colitis or arterial cut off. 2. Findings of acute diverticulitis which was also present on 05/25/2017 and may represent source of patient's abdominal pain. Reported By:
[2017-05-30] MEDS: MORPHINE SULFATE INJ 2 MG IVP PRN (16:20)
[2017-05-30] MEDS: AMBIEN PO PRN (21:00)
[2017-05-31] MEDS: ZOSYN VIAL 3.375 GM 3.375 GM in NS 100 ML IV + SPIKE MINIBAG* 100 ML IV SCH (05:06)
[2017-05-31] MEDS: NS 1000 ML 1,000 ML IV SCH (06:22)
[2017-05-31] MEDS: ZOFRAN INJ 4 MG VIAL IVP PRN (08:25)
[2017-05-31] MEDS: MORPHINE SULFATE INJ 2 MG IVP PRN (08:40)
[2017-05-31] MEDS: ZIAC 5/6.25 MG PO SCH (08:41)
[2017-05-31] MEDS: PriLOSEC PO SCH (08:41)
[2017-05-31] MEDS: NORVASC TAB 5 MG PO SCH (08:41)
[2017-05-31] MEDS: MIRALAX POWDER (255 GM BTL) PO SCH (08:41)
[2017-05-31] MEDS: COLACE CAP 100 MG PO SCH (08:41)
[2017-05-31] MEDS ORDERED: COZAAR PO SCH (09:00)
[2017-05-31 10:13] VITALS: BP 172/73
== END 2017-05-31 10:40 | disposition home or self-care (01) | DRG 392 ==
LOC: ER 17:41 → MED/SURG 20:02
PROVIDERS: ADMIT Internal Medicine; ATTEND Obstetrics & Gynecology Obstetrics
DX: K57.32 Diverticulitis of large intestine without perforation or abscess without bleeding (principal); R10.84 Generalized abdominal pain; R11.2 Nausea with vomiting, unspecified; K59.09 Other constipation; R94.4 Abnormal results of kidney function studies; R74.8 Abnormal levels of other serum enzymes
CPT/HCPCS: 36415; 74000; 74022; 74175; 74176; 76705; 80053; 80061; 80074; 82150; 83690; 85025; 87086; 96365; 96374; 99231; 99284; A4222; J2270; J2405; J2543; J2550

== ENCOUNTER 2017-08-14 11:58 | Emergency (ER) | payer MEDICAID ==
[2017-08-14 12:05] VITALS: BP 154/77; BMI 34.0
--- NOTE | 2017-08-14 13:05 | DR.URIAD ---
HPI - Time Seen Time seen: 13:00 - PCP Primary Care Physician: BONILLA SALAZAR - Complaint Chief Complaint:: PT C/O CCC, CHEST PAIN WHEN SHE COUGHS, AND SPITTING UP .. 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 - Family History History of Family Medical Conditions: Yes Family Medical History: Cancer, [place], Coronary Artery Disease, Hypertension - Social History Does patient currently use any type of tobacco product: No Have you used tobacco products in the last 12 months: No Type of Tobacco Use: None Does any household member use tobacco: No Alcohol Use: None Do you use any recreational Drugs:: No Lives With: Alone Lives Where: Home - infectious screening In the last 2 months have you had wt loss of >10#?: NO Have you had fever, night sweats or hemotysis?: Yes Have you traveled outside the country in the last 6 months?: No Isolation: Standard ROS - Review of Systems Eyes: No Symptoms Reported ENTM: No Symptoms Reported Respiratoy: Non-Productive Cough Cardiovascular: No Symptoms Reported Gastrointestinal/Abdominal: No Symptoms Reported Genitourinary: No Symptoms Reported Neurological: No Symptoms Reported Musculoskeletal: No Symptoms Reported Integumentary: No Symptoms Reported Hematologic/Lymphatic: No Symptoms Reported Endocrine: No Symptoms Reported Psychiatric: No Symptoms Reported All Other Systems: Reviewed and Negative PE - Vital Signs Vitals: Temperature 98.4 F Pulse Rate 72 Respiratory Rate 20 Blood Pressure [Left Arm] 159/66 Blood Pressure [Right Arm] 172/73 Blood Pressure 154/77 O2 Sat by Pulse Oximetry 97 - General Limitations: No Limitations General Appearance: Alert, In No Apparent Distress - Head Head Exam: Normal Inspection, Atraumatic - Eyes Eye exam: Normal Appearance, PERRL, EOMI - ENT ENT Exam: Normal Exam External Ear Exam: Normal External Inspection TM/Canal Exam: Bilateral Normal Nose Exam: Normal Nose Exam Nasal Speculum Exam: Bilateral Normal Mouth Exam: Normal Inspection Throat Exam: Normal Inspection - Neck Neck Exam: Normal Inspection - Chest Chest Inspection: Normal Inspection - Respiratory Respiratory Exam: Normal Lung Sounds Bilat Respiratory Exam: Bilateral Clear to Auscultation - Cardiovascular Cardiovascular Exam: Regular Rate, Normal Rhythm - Abdominal Exam Abdominal Exam: Normal Inspection Abdominal Tenderness: negative: RUQ, RLQ, LUQ, LLQ, Epigastrium, Suprapubic, Diffuse, Mild, Moderate, Severe, Other - Extremeties Extremities Exam: Normal Inspection - Back Back Exam: Normal Inspection, Full ROM - Neurologic Neurological Exam: Alert, Oriented X3, CN II-XII Intact - Psychiatric Psychiatric Exam: Normal Affect - Skin Skin Exam: Warm, Dry, Intact ROR - XRAY XRAY Interpreted by: Radiologist (Chest: No acute process) - Diagnosis Discharge Problem: Upper respiratory infection Qualifiers: URI type: unspecified viral URI Qualified Code(s): J06.9 - Acute upper respiratory infection, unspecified; B97.89 - Other viral agents as the cause of diseases classified elsewhere; B97.89 - Other viral agents as the cause of diseases classified elsewhere - Discharge Plan Condition: Stable - Follow ups/Referrals Follow ups/Referrals: MELANI CRYSTAL [Primary Care Provider] - 3 days - Instructions
[2017-08-14] MEDS ORDERED: APRESOLINE INJ 20 MG VIAL IVP ONE (13:06)
[2017-08-14] MEDS ORDERED: NS 1000 ML 1,000 ML ONE (13:10)
[2017-08-14] MEDS ORDERED: TUSSIONEX PENNKINETIC SUSP PO ONE (13:51)
[2017-08-14] MEDS ORDERED: NS 1000 ML 1,000 ML IV SCH (14:00)
--- NOTE | 2017-08-14 14:05 | RAD ---
Examination: Chest, PA and lateral views History: Cough, chest pain, dizzy with history of asthma Comparison reference: 05/28/2017 Findings: Continued normal heart size. Lungs are clear although slightly underinflated, probably rela arelis to patient habitus. There is no evidence for CHF, pneumonia or neoplasm. Impression: No significant interval change; no acute disease. Reported By:
== END 2017-08-14 14:37 | disposition home or self-care (01) ==
LOC: ER 12:09
DX: J06.9 Acute upper respiratory infection, unspecified (principal); B97.89 Other viral agents as the cause of diseases classified elsewhere
CPT/HCPCS: 71020; 99282; A4222

== ENCOUNTER 2017-09-02 18:21 | Emergency (ER) | payer MEDICAID ==
[2017-09-02 18:26] VITALS: BP 152/82; BMI 33.6
--- NOTE | 2017-09-02 20:11 | DR.GENAD ---
HPI - PCP Primary Care Physician: Abdoul - Complaint/Symptoms Chief Complaint:: "I have not been able to have a bowl movement in about 3 days. I have done everything that I know to do. I hurt so bad and there is so much pressure. 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, Other Past Surgical History Comment: Cyst removal, catorac - Family History History of Family Medical Conditions: Yes Family Medical History: Cancer, ID, Coronary Artery Disease, Hypertension - Social History Does patient currently use any type of tobacco product: No Have you used tobacco products in the last 12 months: No Type of Tobacco Use: None Does any household member use tobacco: No Do you use any recreational Drugs:: No Lives Where: Home - infectious screening In the last 2 months have you had wt loss of >10#?: NO Have you had fever, night sweats or hemotysis?: No Have you traveled outside the country in the last 6 months?: No Isolation: Standard PE - Vital Signs Vitals: Temperature 99.5 F Pulse Rate 90 Respiratory Rate 23 Blood Pressure [Left Arm] 159/66 Blood Pressure [Right Arm] 172/73 Blood Pressure 152/82 O2 Sat by Pulse Oximetry 97 - Discharge Plan Disposition: LWBS After Triage Condition: Stable - Follow ups/Referrals Follow ups/Referrals: MELANI CRYSTAL [Primary Care Provider] - 3 days - Instructions
== END 2017-09-02 18:46 | disposition left against medical advice (07) ==
LOC: ER 18:27
DX: R10.84 Generalized abdominal pain (principal)
CPT/HCPCS: 99281

== ENCOUNTER → 2018-02-15 | Outpatient (CLI) | payer MEDICAID ==
[2018-02-05 21:22] VITALS: BP 142/63
--- NOTE | 2018-02-15 16:45 | RAD ---
Exam: Acute abdominal series History: 62-year-old female with abdominal pain and nausea. Comparison: Previous chest radiograph from 02/05/2018. Findings: On the upright frontal view of the chest, no acute cardiopulmonary abnormality is seen. Supine and erect views the abdomen demonstrate a nonspecific bowel gas pattern with no sign of obstru ction or intra-abdominal free air. Surgical clips are present in the right upper quadrant as result o f previous cholecystectomy. A single surgical clip is noted in the right side of the pelvis is well. Extensive fecal material is seen throughout the descending and sigmoid colon. Impression: No acute abnormalities identified in the chest or abdomen. Extensive fecal material is present in the distal descending and sigmoid colon. Reported By:
== END ==
LOC: RAD 15:33
PROVIDERS: ATTEND Obstetrics & Gynecology Obstetrics
DX: R10.84 Generalized abdominal pain (principal)
CPT/HCPCS: 74022

== ENCOUNTER 2018-02-22 15:41 | Observation (INO) | payer MEDICAID ==
[2018-02-22 17:47] LABS: HEMATOCRIT 31.5 % (36.0-47.0); HEMOGLOBIN 10.8 g/dL (12.0-16.0); LYMPHOCYTES # (AUTO) 1.8 X10^3/uL (1.3-2.9); LYMPHOCYTES % (AUTO) 37.5 % (21.0-51.0); MEAN CORPUSCULAR HEMOGLOBIN 28.7 pg (27.0-34.0); MEAN CORPUSCULAR HGB CONC 34.2 g/dL (33.0-35.0); MEAN PLATELET VOLUME 7.8 fL (7.4-11.0); MONOCYTES # (AUTO) 0.7 x10^3/uL (0.3-0.8); NEUTROPHILS # (AUTO) 2.2 x10^3/uL (2.2-4.8); NEUTROPHILS % (AUTO) 46.5 % (42.0-75.0); PLATELET COUNT 454 X10^3/uL (150.0-450.0); RED BLOOD COUNT 3.76 X10^6/uL (3.5-5.4); RED CELL DISTRIBUTION WIDTH 15.1 % (11.6-16.5); WHITE BLOOD COUNT 4.7 X10^3/uL (3.6-10.0)
[2018-02-22 17:57] LABS: ALANINE AMINOTRANSFERASE 39 Units/L (12-78); ALBUMIN 3.5 g/dL (3.4-5.0); ALKALINE PHOSPHATASE 53 Units/L (46-116); ASPARTATE AMINO TRANSFERASE 43 Units/L (15-37); BLOOD UREA NITROGEN 33 mg/dL (7-18); CARBON DIOXIDE 22.3 mmol/L (21-32); CHLORIDE 102 mmol/L (98-107); SODIUM 135 mmol/L (136-145); eGFR BLACK RACES > 60 (>60); eGFR NON BLACK RACES 60 (>60)
[2018-02-22] MEDS ORDERED: COLACE SYRUP 100 MG UDC RECTAL ONE (18:00)
[2018-02-23 06:33] LABS: BASOPHILS # (AUTO) 0.1 X10^3/uL (0.0-0.1); HEMATOCRIT 29.6 % (36.0-47.0); LYMPHOCYTES # (AUTO) 1.8 X10^3/uL (1.3-2.9); LYMPHOCYTES % (AUTO) 34.1 % (21.0-51.0); MEAN CORPUSCULAR HEMOGLOBIN 28.6 pg (27.0-34.0); MEAN CORPUSCULAR VOLUME 84.1 fL (80.0-100.0); MEAN PLATELET VOLUME 7.7 fL (7.4-11.0); MONOCYTES # (AUTO) 0.7 x10^3/uL (0.3-0.8); MONOCYTES % (AUTO) 12.3 % (0.0-13.0); NEUTROPHILS # (AUTO) 2.8 x10^3/uL (2.2-4.8); NEUTROPHILS % (AUTO) 52.6 % (42.0-75.0); PLATELET COUNT 404 X10^3/uL (150.0-450.0); RED BLOOD COUNT 3.51 X10^6/uL (3.5-5.4); RED CELL DISTRIBUTION WIDTH 15.1 % (11.6-16.5); WHITE BLOOD COUNT 5.3 X10^3/uL (3.6-10.0)
[2018-02-23 07:00] LABS: ALANINE AMINOTRANSFERASE 34 Units/L (12-78); ALBUMIN 3.2 g/dL (3.4-5.0); ALKALINE PHOSPHATASE 45 Units/L (46-116); ASPARTATE AMINO TRANSFERASE 36 Units/L (15-37); BLOOD UREA NITROGEN 28 mg/dL (7-18); CALCIUM 8.3 mg/dL (8.5-10.1); CARBON DIOXIDE 24.5 mmol/L (21-32); CHLORIDE 102 mmol/L (98-107); COR CA(FOR HYPOALB) 8.9 mg/dL (8.5-10.1); CREATININE 0.99 mg/dL (0.55-1.02); SODIUM 135 mmol/L (136-145); TOTAL PROTEIN 8.2 g/dL (6.4-8.2); eGFR BLACK RACES > 60 (>60); eGFR NON BLACK RACES > 60 (>60)
[2018-02-23] MEDS ORDERED: ZOFRAN INJ 4 MG VIAL IVP ONE (07:53)
[2018-02-23 08:29] VITALS: BMI 32.8
--- NOTE | 2018-02-23 09:21 | RAD ---
HISTORY: Abdominal pain, nausea Study: Flat and upright abdomen, PA chest Comparison: 02/15/2018 Findings: The abdominal gas pattern is nonspecific and nonobstructive. No pneumoperitoneum is identified. No ab normal masses or abnormal calcifications are identified. The regional skeleton is intact. The chest i s clear. IMPRESSION: Unremarkable acute abdominal series Reported By:
[2018-02-23 10:56] VITALS: BP 120/51
== END 2018-02-23 12:00 | disposition home or self-care (01) ==
LOC: MED/SURG 15:41
PROVIDERS: ADMIT Obstetrics & Gynecology Obstetrics; ATTEND Obstetrics & Gynecology Obstetrics
DX: K56.41 Fecal impaction (principal); R10.84 Generalized abdominal pain; K21.9 Gastro-esophageal reflux disease without esophagitis; I25.10 Atherosclerotic heart disease of native coronary artery without angina pectoris; I10 Essential (primary) hypertension; E78.2 Mixed hyperlipidemia; F41.8 Other specified anxiety disorders; E87.1 Hypo-osmolality and hyponatremia
CPT/HCPCS: 36415; 74022; 80053; 85025; A4222; G0378; J2405

== ENCOUNTER 2018-09-12 19:45 | Observation (INO) ==
[2018-09-12 20:01] VITALS: BMI 32.5
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
[2018-09-12 20:31] LABS: BASOPHILS % (AUTO) 0.7 % (0.2-1.0); EOSINOPHILS # (AUTO) 0.1 x10^3/uL (0.0-0.2); EOSINOPHILS % (AUTO) 1.4 % (0.9-2.9); HEMATOCRIT 35.3 % (36.0-47.0); HEMOGLOBIN 11.7 g/dL (12.0-16.0); LYMPHOCYTES # (AUTO) 1.6 X10^3/uL (1.3-2.9); LYMPHOCYTES % (AUTO) 23.8 % (21.0-51.0); MEAN CORPUSCULAR HEMOGLOBIN 29.8 pg (27.0-34.0); MEAN CORPUSCULAR HGB CONC 33.3 g/dL (33.0-35.0); MEAN CORPUSCULAR VOLUME 89.7 fL (80.0-100.0); MEAN PLATELET VOLUME 8.2 fL (7.4-11.0); MONOCYTES # (AUTO) 0.4 x10^3/uL (0.3-0.8); MONOCYTES % (AUTO) 6.3 % (0.0-13.0); NEUTROPHILS # (AUTO) 4.7 x10^3/uL (2.2-4.8); NEUTROPHILS % (AUTO) 67.8 % (42.0-75.0); PLATELET COUNT 346 X10^3/uL (150.0-450.0); RED BLOOD COUNT 3.93 X10^6/uL (3.5-5.4); RED CELL DISTRIBUTION WIDTH 14.3 % (11.6-16.5); WHITE BLOOD COUNT 6.9 X10^3/uL (3.6-10.0)
[2018-09-12 20:47] LABS: ALANINE AMINOTRANSFERASE 23 Units/L (12-78); ALBUMIN 3.9 g/dL (3.4-5.0); ALKALINE PHOSPHATASE 49 Units/L (46-116); AMYLASE 46 Units/L (25-115); ASPARTATE AMINO TRANSFERASE 26 Units/L (15-37); BLOOD UREA NITROGEN 33 mg/dL (7-18); CALCIUM 8.9 mg/dL (8.5-10.1); CARBON DIOXIDE 27.8 mmol/L (21-32); CHLORIDE 104 mmol/L (98-107); CREATININE 1.38 mg/dL (0.55-1.02); LIPASE 156 Units/L (73-393); SODIUM 141 mmol/L (136-145); TOTAL PROTEIN 8.2 g/dL (6.4-8.2); eGFR NON BLACK RACES 41 (>60)
--- NOTE | 2018-09-12 20:56 | CT ---
HISTORY: Chronic back pain. Study: CT abdomen and pelvis without contrast Comparison: CT abdomen/pelvis dated October 27, 2011. Technique: Multiple axial images of the abdomen and pelvis were obtained from the lung bases to the pubic symphysis without the administration of IV contrast. Dose reduction techniques including Automated Exposure Control (AEC) and adjustment of mA and kV were utilized. Study limited secondary to lack of IV and oral contrast. Findings: The visualized portions of the lung bases are unremarkable. Small hiatal hernia. The gallbladder is surgically absent. The visualized liver, spleen, pancreas, adrenals, and kidneys are unremarkable. No significant mesenteric lymphadenopathy or stranding can be observed. No free fluid or free air is seen within the abdomen. Limited evaluation of the large and small bowel secondary to lack of oral contrast and collapse. Colonic diverticulosis without CT evidence to suggest diverticulitis. Remaining large and small bowel appear normal. The appendix appears normal. Large amount of stool is seen within the rectum. The uterus is unremarkable. No obvious adnexal lesions. Vascular calcifications without evidence of aneurysmal dilatation. The urinary bladder is grossly unremarkable. Degenerative changes of the spine. No aggressive osseous lesions. IMPRESSION: 1. No CT evidence of acute abdominal/pelvic pathology. 2. Chronic findings as above. Reported By:
[2018-09-12 23:11] LABS: BILIRUBIN,URINE NEGATIVE (NEGATIVE); BLOOD/HEMOGLOBIN,URINE 1+ (NEGATIVE); GLUCOSE, URINE NEGATIVE (NEGATIVE); KETONES,URINE NEGATIVE (NEGATIVE); LEUKOCYTE ESTERASE ,URINE 2+ (NEGATIVE); NITRITES,URINE NEGATIVE (NEGATIVE); PROTEIN,URINE NEGATIVE (NEGATIVE); UROBILINOGEN,URINE NORMAL (NORMAL)
[2018-09-12] MEDS ORDERED: PEPCID TAB 20 MG PO PRN (23:11)
[2018-09-12] MEDS ORDERED: HumuLIN R SC PRN (23:16)
[2018-09-12 23:18] LABS: APPEARANCE,URINE CLEAR (CLEAR); COLOR,URINE YELLOW (YELLOW)
[2018-09-12 23:19] LABS: BACTERIA,URINE 1+ /HPF (NEGATIVE); HYALINE CASTS, URINE FEW /LPF (NEGATIVE); RBC,URINE 0-2 /HPF (NONE SEEN); SQUAMOUS EPITHELIAL CELL,UR MODERATE /HPF (NEGATIVE)
[2018-09-13] MEDS: ZOFRAN INJ 4 MG VIAL IVP PRN ×4 (01:24→19:36)
[2018-09-13 05:17] LABS: BASOPHILS % (AUTO) 0.5 % (0.2-1.0); EOSINOPHILS # (AUTO) 0.2 x10^3/uL (0.0-0.2); EOSINOPHILS % (AUTO) 2.8 % (0.9-2.9); HEMATOCRIT 34.3 % (36.0-47.0); HEMOGLOBIN 11.5 g/dL (12.0-16.0); LYMPHOCYTES # (AUTO) 2.1 X10^3/uL (1.3-2.9); LYMPHOCYTES % (AUTO) 33.8 % (21.0-51.0); MEAN CORPUSCULAR HGB CONC 33.7 g/dL (33.0-35.0); MEAN CORPUSCULAR VOLUME 89.1 fL (80.0-100.0); MEAN PLATELET VOLUME 8.5 fL (7.4-11.0); MONOCYTES # (AUTO) 0.4 x10^3/uL (0.3-0.8); MONOCYTES % (AUTO) 7.1 % (0.0-13.0); NEUTROPHILS # (AUTO) 3.5 x10^3/uL (2.2-4.8); NEUTROPHILS % (AUTO) 55.8 % (42.0-75.0); PLATELET COUNT 320 X10^3/uL (150.0-450.0); RED BLOOD COUNT 3.85 X10^6/uL (3.5-5.4); RED CELL DISTRIBUTION WIDTH 14.5 % (11.6-16.5); WHITE BLOOD COUNT 6.2 X10^3/uL (3.6-10.0)
[2018-09-13 05:27] LABS: ALANINE AMINOTRANSFERASE 21 Units/L (12-78); ALBUMIN 3.7 g/dL (3.4-5.0); ALKALINE PHOSPHATASE 45 Units/L (46-116); ASPARTATE AMINO TRANSFERASE 26 Units/L (15-37); BLOOD UREA NITROGEN 30 mg/dL (7-18); CALCIUM 8.8 mg/dL (8.5-10.1); CARBON DIOXIDE 28.1 mmol/L (21-32); CHLORIDE 103 mmol/L (98-107); CREATININE 1.15 mg/dL (0.55-1.02); SODIUM 140 mmol/L (136-145); TOTAL PROTEIN 7.7 g/dL (6.4-8.2); eGFR NON BLACK RACES 51 (>60)
[2018-09-13] MEDS ORDERED: NS 500 ML IV 500 ML IV ONE ×2 (09:51→15:11)
[2018-09-13] MEDS ORDERED: COLACE SYRUP 100 MG UDC RECTAL NR (12:00)
[2018-09-13] MEDS: XANAX PO PRN (15:31)
[2018-09-13] MEDS: LINZESS PO SCH ×2 (15:31→15:33)
[2018-09-13] MEDS: ZANTAC PO SCH ×2 (16:25→20:59)
[2018-09-13] MEDS: PROTONIX TAB 40 MG PO SCH (16:26)
[2018-09-13] MEDS ORDERED: AMBIEN PO SCH (21:00)
[2018-09-13] MEDS ORDERED: BUTT CREAM (COMPOUND) TOP PRN (21:14)
[2018-09-14 05:31] LABS: ALANINE AMINOTRANSFERASE 18 Units/L (12-78); ALBUMIN 3.3 g/dL (3.4-5.0); ALKALINE PHOSPHATASE 42 Units/L (46-116); ASPARTATE AMINO TRANSFERASE 23 Units/L (15-37); BLOOD UREA NITROGEN 21 mg/dL (7-18); CALCIUM 8.5 mg/dL (8.5-10.1); CARBON DIOXIDE 25.6 mmol/L (21-32); CHLORIDE 106 mmol/L (98-107); COR CA(FOR HYPOALB) 9.1 mg/dL (8.5-10.1); CREATININE 1.08 mg/dL (0.55-1.02); MAGNESIUM 1.9 mg/dL (1.7-2.9); SODIUM 141 mmol/L (136-145); TOTAL PROTEIN 7.1 g/dL (6.4-8.2); eGFR NON BLACK RACES 55 (>60)
--- NOTE | 2018-09-14 06:27 | RAD ---
HISTORY: Impaction; abdominal pain Study: Acute abdominal series Comparison: 02/23/[address] scan of the abdomen done 09/12/2018. Findings: The trachea is midline. The cardiac silhouette is unremarkable. The lungs are clear without focal infiltrate or effusion. The bony thorax is unremarkable. Flat plate and upright evaluation of the abdomen demonstrates a slight increase in small bowel gas. The appearance is nonspecific. Moderate stool is present throughout the colon. No significant stool burden is seen. The rectal fecal impaction has been relieved.. No pathological soft tissue mass or calcification can be observed. There are surgical clips from cholecystectomy. No free intraperitoneal air or fluid is seen. The bony structures are grossly intact. IMPRESSION: 1. No acute cardiopulmonary disease. 2. Slight increase in small bowel gas in a nonspecific pattern. There is moderate stool present throughout the colon. No significant stool burden is seen. The rectal fecal impaction has been relieved. Reported By:
[2018-09-14] MEDS: ZOFRAN INJ 4 MG VIAL IVP PRN (06:43)
[2018-09-14] MEDS: XANAX PO PRN (08:32)
[2018-09-14] MEDS: LINZESS PO SCH (08:33)
[2018-09-14] MEDS: PROTONIX TAB 40 MG PO SCH (08:33)
[2018-09-14] MEDS: ZANTAC PO SCH (08:34)
[2018-09-14] MEDS ORDERED: TRICOR TAB 160 MG PO SCH (09:00)
[2018-09-14] MEDS ORDERED: PLAVIX PO SCH (09:00)
[2018-09-14] MEDS ORDERED: CLARITIN PO SCH (09:00)
[2018-09-14] MEDS ORDERED: PROTONIX TAB 40 MG PO SCH (09:00)
[2018-09-14] MEDS ORDERED: NORVASC TAB 10 MG PO SCH (09:00)
[2018-09-14] MEDS ORDERED: BENICAR TAB 40 MG PO SCH (09:00)
[2018-09-14] MEDS ORDERED: ZEBETA TAB 5 MG PO SCH (09:00)
[2018-09-14] MEDS ORDERED: PATIENT'S HOME MEDICATION PO SCH (09:00)
[2018-09-14] MEDS ORDERED: LIPITOR TAB 20 MG PO SCH (09:00)
[2018-09-14] MEDS ORDERED: HYDROCHLOROTHIAZIDE 12.5 MG CAP PO SCH ×2 (09:00)
[2018-09-14 09:26] VITALS: BP 160/73
== END 2018-09-14 12:40 | disposition home or self-care (01) ==
LOC: ER 19:46 → MED/SURG 19:46
PROVIDERS: ADMIT Internal Medicine; ATTEND Obstetrics & Gynecology Obstetrics
DX: R94.4 Abnormal results of kidney function studies; M13.89 Other specified arthritis, multiple sites; F41.8 Other specified anxiety disorders; R06.02 Shortness of breath; Z79.899 Other long term (current) drug therapy; R10.84 Generalized abdominal pain; K59.09 Other constipation; I10 Essential (primary) hypertension; K21.9 Gastro-esophageal reflux disease without esophagitis; R10.32 Left lower quadrant pain; E11.65 Type 2 diabetes mellitus with hyperglycemia; E78.2 Mixed hyperlipidemia
CPT/HCPCS: 36415; 74022; 74176; 80053; 81001; 82150; 83690; 83735; 85025; 96365; 96367; 96374; 99283; 99284; A4216; A4222; G0378; J2405; J7040

== ENCOUNTER 2021-12-07 17:27 | Observation (INO) ==
--- NOTE | 2021-12-07 17:39 | DR.CP ---
HPI Time Seen Time Seen by Provider: 12/07/21 17:39 HPI Comment HPI Comment: PATIENT IS 66YR OLD FEMALE IN ER WITH INCREASING INTERMITTENT CRUSHING PAIN RADIATING TO THE BACK. PAIN ASSICIATED WITH NAUSEA AND DIZZINESS, PAIN IS 10/10 TODAY. NO FEVER ,COUGH OR CONGESTION. Complaint Chief Complaint Doctor Comments: INCREASING CHEST PAIN OFF AND ON TIMES ONE WEEK COVID-19 Coronavirus risk:travel/contact w/high risk person: No Has patient experienced Coronavirus symptoms: No Reviewed Nurses Notes Review: Yes Source History Provided: Patient Mode of Arrival Mode of Arrival: Ambulatory Timing Came on: Suddenly Duration Duration: Intermittent Duration: Days Location Location of Chest Pain: Chest Chest Pain Radiation Location: Back Context Onset: At rest Cardiac Risk Factors: Family History, Hyperlipidemia, HTN and Diabetes PE Risk Factors: None History of: None Prehospital Care: None Quality Quality: Crushing Severity Severity: Severe Modifying Factors Worsens: Exertion Impoves: Rest Associated Signs and Symptoms Associated Signs and Symptoms: Nausea/Vomiting PMH PMH Past Medical History: Anxiety, Arthritis, Coronary Artery Disease, Diabetes, Dyslipidemia, GERD, Headaches and Hypertension Past Surgical History: Yes Surgical History: Angioplasty/Stents, Cholecystectomy, 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 and Other Family History Family Medical History: Diabetes Mellitus, Coronary Artery Disease, Heart Brayden lure and Hypertension Social History Do you use any recreational Drugs:: No ROS Review of Systems Constitutional: No Symptoms Reported, See HPI, Weakness and Fatigue; negative Fever Eyes: No Symptoms Reported and See HPI ENTM: No Symptoms Reported and See HPI; negative Nose Discharge and Nose Congestion Respiratoy: No Symptoms Reported and See HPI; negative Moist Cough, Short of Breath and Wheezing Cardiovascular: No Symptoms Reported, See HPI and Chest Pain Gastrointestinal/Abdominal: See HPI and Nausea; negative Abdominal Pain, Diarrhea and Vomiting Genitourinary: No Symptoms Reported and See HPI; negative Dysuria Neurological: See HPI, Weakness and Dizziness; negative Headache Musculoskeletal: No Symptoms Reported and See HPI; negative Back Pain Integumentary: No Symptoms Reported and See HPI; negative Rash and Juandice Hematologic/Lymphatic: No Symptoms Reported and See HPI; negative Easy Bruising Endocrine: No Symptoms Reported and See HPI; negative Increased Thirst and Increased Urine Psychiatric: No Symptoms Reported and See HPI All Other Systems: Reviewed and Negative PE Vitals Vitals: Temperature 97.9 F Pulse Rate 63 Respiratory Rate 17 Blood Pressure [Left Arm] 135/60 Blood Pressure 173/63 O2 Sat by Pulse Oximetry 100 General Limitations: No Limitations General Appearance: Alert and In No Apparent Distress Head Head Exam: Normal Inspection Eyes Eye exam: Normal Appearance; negative Scleral Icterus and Conjunctival Injection ENT ENT Exam: Normal Exam, Normal Oropharynx, Normal External Ear Exam and TM's Normal Bilaterally Chest Chest Inspection: Normal Inspection and Symmetric Chest Wall Rise; negative Tenderness Respiratory Respiratory Exam: Normal Lung Sounds Bilat; negative Accessory Muscle Use, Chest Wall Tenderness and Respiratory Distress Respiratory Exam: Bilateral: Rhonchi and Lower: Rhonchi Cardiovascular Cardiovascular Exam: Regular Rate, Normal Rhythm and Normal Heart Sounds; negative Systolic Murmur and Diastolic Murmur Pulse: Normal Edema: Normal Abdominal Exam Abdominal Exam: Normal Inspection, Normal Bowel Sounds and Soft; negative Tenderness Extremities Extremities Exam: Normal Inspection and Normal Capillary Refill Back Back Exam: Normal Inspection; negative (R) CVA Tenderness and (L) CVA Tenderness Neurologic Neurological Exam: Alert and Oriented X3; negative Motor Sensory Deficit Psychiatric Psychiatric Exam: Normal Affect and Normal Mood Skin Skin Exam: Warm, Dry, Intact and Normal Color MDM Differential Diagnosis Differential Diagnosis: Angina, Chest Wall Pain, CHF, Costochondritis, Myocardial Infarction, Pericarditis, Pneumonia and Pneumothorax COURSE Treatment Treatment: SEE ORDERS, DONE WHILE PATIENT IN ER. ASA 325MG CHEWABLE TABS, NTG 0.4MG S/L, PEPCID 20MG IVPB AND NS 50CC/HR. ALSO MORPHIN 4MG AND ZOFRAN 4MG IV. DISCUSSED LABS AND XRAY REPORT WITH PATIENT. SHE WILL BE ADMITTED TO HOSPITAL. Consultation Consultation Comments: WHILE IN ER, DICUSSED PATIENT WITH DR. DEL RIO. HE WILL ADMIT PATIENT. Education/Counseling Education/Counseling: Patient Educated On: Diagnosis ROR Labs Reviewed Laboratory Results Reviewed?: Yes Result Diagrams: 12/10/21 05:44 12/10/21 05:44 Laboratory: WBC 4.6 X10^3/uL (3.6-10.0) 12/07/21 17:43 RBC 3.97 X10^6/uL (3.5-5.4) 12/07/21 17:43 Hgb 12.5 g/dL (12.0-16.0) 12/07/21 17:43 Hct 36.7 % (36.0-47.0) 12/07/21 17:43 MCV 92.5 fL (80.0-100.0) 12/07/21 17:43 MCH 31.4 pg (27.0-34.0) 12/07/21 17:43 MCHC 34.0 g/dL (33.0-35.0) 12/07/21 17:43 RDW 14.2 % (11.6-16.5) 12/07/21 17:43 Plt Count 245 X10^3/uL (150.0-450.0) 12/07/21 17:43 Plt Count Comment Adequate (ADEQUATE) 12/07/21 17:43 MPV 8.5 fL (7.4-11.0) 12/07/21 17:43 Neut % (Auto) 49.0 % (42.0-75.0) 12/07/21 17:43 Lymph % (Auto) 37.8 % (21.0-51.0) 12/07/21 17:43 [place] % (Auto) 11.0 % (0.0-13.0) 12/07/21 17:43 Eos % (Auto) 1.6 % (0.9-2.9) 12/07/21 17:43 Baso % (Auto) 0.6 % (0.2-1.0) 12/07/21 17:43 Neut # (Auto) 2.3 x10^3/uL (2.2-4.8) 12/07/21 17:43 Lymph # (Auto) 1.7 X10^3/uL (1.3-2.9) 12/07/21 17:43 [place] # (Auto) 0.5 x10^3/uL (0.3-0.8) 12/07/21 17:43 Eos # (Auto) 0.1 x10^3/uL (0.0-0.2) 12/07/21 17:43 Baso # (Auto) 0.0 X10^3/uL (0.0-0.1) 12/07/21 17:43 Absolute Nucleated RBC 0.2 /100WBC 12/07/21 17:43 Plt Morphology Comment Normal (NORMAL) 12/07/21 17:43 RBC Morphology Normal (NORMAL) 12/07/21 17:43 PT 13.2 SECONDS (11.8-14.3) 12/07/21 18:58 INR Target Range - 12/07/21 18:58 INR 1.05 (0.8-1.3) 12/07/21 18:58 APTT 26.1 SECONDS (22.9-36.5) 12/07/21 18:58 PTT Comment - 12/07/21 18:58 Sodium 141 mmol/L (136-145) 12/07/21 17:43 Corrected Sodium TNP 12/07/21 17:43 Potassium 4.1 mmol/L (3.5-5.1) 12/07/21 17:43 Chloride 108 mmol/L (98-107) H 12/07/21 17:43 Carbon Dioxide 25.4 mmol/L (21-32) 12/07/21 17:43 BUN 37 mg/dL (7-18) H 12/07/21 17:43 Creatinine 1.34 mg/dL (0.55-1.02) H 12/07/21 17:43 Est GFR (MDRD) Af Amer 51 (>60) L 12/07/21 17:43 Est GFR (MDRD) Non-Af 42 (>60) L 12/07/21 17:43 Glucose 95 mg/dL (65-99) 12/07/21 17:43 Calcium 8.4 mg/dL (8.5-10.1) L 12/07/21 17:43 Corrected Calcium TNP 12/07/21 17:43 Magnesium 2.0 mg/dL (1.7-2.9) 12/07/21 17:43 Total Bilirubin 0.30 mg/dL (0.2-1.0) 12/07/21 17:43 AST 36 Units/L (15-37) 12/07/21 17:43 ALT 26 Units/L (12-78) 12/07/21 17:43 Alkaline Phosphatase 43 Units/L (46-116) L 12/07/21 17:43 Creatine Kinase 86 Units/L (26-192) 12/07/21 19:57 CK-MB (CK-2) 1.6 ng/mL (0-4.0) 12/07/21 19:57 CK/CKMB % Calc 1.9 % (<4) 12/07/21 19:57 Troponin I High Sens 8.0 ng/L (4.0-60.0) 12/07/21 19:57 Total Protein 7.3 g/dL (6.4-8.2) 12/07/21 17:43 Albumin 3.6 g/dL (3.4-5.0) 12/07/21 17:43 Globulin 3.7 g/dL (2.5-4.5) 12/07/21 17:43 Albumin/Globulin Ratio 1.0 Ratio (1.1-2.1) L 12/07/21 17:43 Triglycerides 424 mg/dL (0-150) H 12/07/21 17:43 Cholesterol 162 mg/dL (0-200) 12/07/21 17:43 LDL Cholesterol, Calc 66 mg/dL (0-100) 12/07/21 17:43 HDL Cholesterol 11 mg/dL (40-60) L 12/07/21 17:43 Cholesterol/HDL Ratio 14.7 (0.0-5.0) H 12/07/21 17:43 Specimen Type Clean catch urine 12/07/21 20:08 Urine Color Yellow (YELLOW) 12/07/21 20:08 Urine Appearance Clear (CLEAR) 12/07/21 20:08 Urine pH 5.0 (5.0 - 8.0) 12/07/21 20:08 Ur Specific [place] 1.025 (1.000-1.030) 12/07/21 20:08 Urine Protein 1+ (NEGATIVE) 12/07/21 20:08 Urine Glucose (UA) Negative (NEGATIVE) 12/07/21 20:08 Urine Ketones Negative (NEGATIVE) 12/07/21 20:08 Urine Occult Blood 2+ (NEGATIVE) 12/07/21 20:08 Urine Nitrite Negative (NEGATIVE) 12/07/21 20:08 Urine Bilirubin Negative (NEGATIVE) 12/07/21 20:08 Urine Urobilinogen 1+ (NORMAL) 12/07/21 20:08 Ur Leukocyte Esterase 1+ (NEGATIVE) 12/07/21 20:08 Urine RBC 3-5 /HPF (0-3) A 12/07/21 20:08 Urine WBC 0-2 /HPF (0-5) 12/07/21 20:08 Ur Squamous Epith Cells Few /HPF (NEGATIVE) 12/07/21 20:08 Urine Bacteria Trace /HPF (NEGATIVE) 12/07/21 20:08 Hyaline Casts Few /LPF (NEGATIVE) 12/07/21 20:08 Ur Culture Indicated? No/not indicated 12/07/21 20:08 SARS CoV-2 RNA Rapid BRENDA Negative (NEGATIVE) 12/07/21 21:17 XRAY XRAY Interpreted by: Radiologist (REPORT NOTED.) and Self EKG Rate: 70 [place]: Normal Rhythm: NSR Block: None Hypertrophy: None ST: Nonsp (LOW VOLTAGE.) Opioid Opioid Risk Tool Age ([place] box if 16-45): No History of Preadolescent Sexual Abuse: No Total: 0 Total Score Risk Category: Low Risk Copyright: Carlos predicting aberrant behaviors Diagnosis Discharge Problem: Chest pain, rule out acute myocardial infarction Chest pain Qualifiers: Chest pain type: precordial pain Qualified Code(s): R07.2 - Precordial pain Instructions Instructions: Indigestion, Jboc-dd-[id number] Food Choices for Gastroesophageal Reflux Disease, Adult Nonspecific Chest Pain, Adult, Urqx-[id number] Heartburn, Tebe-wv-Valz Chronic Obstructive Pulmonary Disease, Idhj-gu-Etab Abdominal Pain, Adult, Kheu-ul-Oibd Type 2 Diabetes Mellitus, Self-Care, Adult, [id number] Esophagitis Hypertension, Adult, Ozwj-[id number] Forms: Precautions for COVID19 [facility] Patient Portal Social Distancing
[2021-12-07] MEDS ORDERED: PEPCID 20 MG VIAL 20 MG in NS 50 ML IV 50 ML IV ONE (17:52)
[2021-12-07] MEDS ORDERED: MORPHINE SULFATE INJ 4 MG IVP ONE (17:52)
[2021-12-07] MEDS ORDERED: ZOFRAN INJ 4 MG VIAL IVP ONE (17:52)
[2021-12-07 17:54] LABS: BASOPHILS % (AUTO) 0.6 % (0.2-1.0); EOSINOPHILS # (AUTO) 0.1 x10^3/uL (0.0-0.2); EOSINOPHILS % (AUTO) 1.6 % (0.9-2.9); HEMATOCRIT 36.7 % (36.0-47.0); HEMOGLOBIN 12.5 g/dL (12.0-16.0); LYMPHOCYTES # (AUTO) 1.7 X10^3/uL (1.3-2.9); LYMPHOCYTES % (AUTO) 37.8 % (21.0-51.0); MEAN CORPUSCULAR HEMOGLOBIN 31.4 pg (27.0-34.0); MEAN CORPUSCULAR VOLUME 92.5 fL (80.0-100.0); MEAN PLATELET VOLUME 8.5 fL (7.4-11.0); MONOCYTES # (AUTO) 0.5 x10^3/uL (0.3-0.8); NEUTROPHILS # (AUTO) 2.3 x10^3/uL (2.2-4.8); RED BLOOD COUNT 3.97 X10^6/uL (3.5-5.4); RED CELL DISTRIBUTION WIDTH 14.2 % (11.6-16.5); WHITE BLOOD COUNT 4.6 X10^3/uL (3.6-10.0)
[2021-12-07] MEDS ORDERED: ZOFRAN INJ 4 MG VIAL ONE (17:57)
[2021-12-07] MEDS ORDERED: MORPHINE SULFATE INJ 4 MG ONE (17:57)
[2021-12-07] MEDS ORDERED: NS 50 ML IV 50 ML IV ONE (17:58)
[2021-12-07 18:08] LABS: PLATELET MORPHOLOGY COMMENT NORMAL (NORMAL)
--- NOTE | 2021-12-07 18:08 | RAD ---
HISTORYC/O 1 WEEK HISTORY OF INTERMITTENT BUT INCREASEING IN FREQUENCY SUBSTERNAL CHEST PAIN DESCRIBED CRUSHING THAT RADIATES STRAIGHT THROUGH TO HER BACK AND INTO THE BACK OF HER RIGHT SHOULDER. Relevant Clinical InformationSTUDYCHEST, 1 [id number]/30/2020.FINDINGSThe trachea is midline. The cardiac silhouette is unremarkable. The lungs are clear without focal infiltrate or effusion. The bony thorax is unremarkable.IMPRESSIONNo acute cardiopulmonary findings .Electronically signed by: Ambrocio Stewart (Dec 07, 2021 18:07:08)
[2021-12-07 18:34] LABS: ALANINE AMINOTRANSFERASE 26 Units/L (12-78); ALBUMIN 3.6 g/dL (3.4-5.0); ALKALINE PHOSPHATASE 43 Units/L (46-116); ASPARTATE AMINO TRANSFERASE 36 Units/L (15-37); BLOOD UREA NITROGEN 37 mg/dL (7-18); CALCIUM 8.4 mg/dL (8.5-10.1); CARBON DIOXIDE 25.4 mmol/L (21-32); CHLORIDE 108 mmol/L (98-107); CKMB % 1.8 % (<4); CREATINE KINASE 95 Units/L (26-192); CREATINE KINASE MB 1.7 ng/mL (0-4.0); CREATININE 1.34 mg/dL (0.55-1.02); SODIUM 141 mmol/L (136-145); TOTAL PROTEIN 7.3 g/dL (6.4-8.2); eGFR NON BLACK RACES 42 (>60)
[2021-12-07 20:21] LABS: APPEARANCE,URINE CLEAR (CLEAR); BILIRUBIN,URINE NEGATIVE (NEGATIVE); BLOOD/HEMOGLOBIN,URINE 2+ (NEGATIVE); COLOR,URINE YELLOW (YELLOW); GLUCOSE, URINE NEGATIVE (NEGATIVE); KETONES,URINE NEGATIVE (NEGATIVE); LEUKOCYTE ESTERASE ,URINE 1+ (NEGATIVE); NITRITES,URINE NEGATIVE (NEGATIVE); PROTEIN,URINE 1+ (NEGATIVE); UROBILINOGEN,URINE 1+ (NORMAL)
[2021-12-07 20:26] LABS: CKMB % 1.9 % (<4); CREATINE KINASE MB 1.6 ng/mL (0-4.0)
[2021-12-07 20:28] LABS: SQUAMOUS EPITHELIAL CELL,UR FEW /HPF (NEGATIVE)
[2021-12-07 20:29] LABS: BACTERIA,URINE TRACE /HPF (NEGATIVE); HYALINE CASTS, URINE FEW /LPF (NEGATIVE)
[2021-12-07] MEDS ORDERED: ASPIRIN 81 MG CHEWTAB PO ONE (21:33)
[2021-12-07] MEDS ORDERED: NITROSTAT ONE (21:36)
[2021-12-07] MEDS ORDERED: ASPIRIN 81 MG CHEWTAB ONE (21:36)
[2021-12-07] MEDS: NITROSTAT SL PRN ×2 (21:40→21:47)
[2021-12-07 23:41] LABS: CHOL/HDL RATIO 14.7 (0.0-5.0)
[2021-12-08 00:06] VITALS: BMI 34.4
[2021-12-08] MEDS: NS 1,000 ML IV 1,000 ML IV SCH ×3 (00:38→12:06)
[2021-12-08 02:22] LABS: BASOPHILS % (AUTO) 0.7 % (0.2-1.0); EOSINOPHILS # (AUTO) 0.1 x10^3/uL (0.0-0.2); EOSINOPHILS % (AUTO) 2.2 % (0.9-2.9); HEMATOCRIT 34.4 % (36.0-47.0); HEMOGLOBIN 11.8 g/dL (12.0-16.0); LYMPHOCYTES # (AUTO) 1.7 X10^3/uL (1.3-2.9); LYMPHOCYTES % (AUTO) 39.8 % (21.0-51.0); MEAN CORPUSCULAR HEMOGLOBIN 31.6 pg (27.0-34.0); MEAN CORPUSCULAR HGB CONC 34.2 g/dL (33.0-35.0); MEAN CORPUSCULAR VOLUME 92.4 fL (80.0-100.0); MEAN PLATELET VOLUME 8.2 fL (7.4-11.0); MONOCYTES # (AUTO) 0.3 x10^3/uL (0.3-0.8); NEUTROPHILS # (AUTO) 2.1 x10^3/uL (2.2-4.8); NEUTROPHILS % (AUTO) 49.3 % (42.0-75.0); RED BLOOD COUNT 3.73 X10^6/uL (3.5-5.4); RED CELL DISTRIBUTION WIDTH 14.5 % (11.6-16.5); WHITE BLOOD COUNT 4.2 X10^3/uL (3.6-10.0)
[2021-12-08 02:36] LABS: ALANINE AMINOTRANSFERASE 29 Units/L (12-78); ALBUMIN 3.4 g/dL (3.4-5.0); ALKALINE PHOSPHATASE 38 Units/L (46-116); ASPARTATE AMINO TRANSFERASE 39 Units/L (15-37); BLOOD UREA NITROGEN 40 mg/dL (7-18); CALCIUM 7.8 mg/dL (8.5-10.1); CARBON DIOXIDE 27.1 mmol/L (21-32); CHLORIDE 108 mmol/L (98-107); COR NA(FOR HYPERGLY) 146 mmol/L (136-145); CREATININE 1.36 mg/dL (0.55-1.02); MAGNESIUM 1.9 mg/dL (1.7-2.9); SODIUM 145 mmol/L (136-145); TOTAL PROTEIN 6.9 g/dL (6.4-8.2); eGFR NON BLACK RACES 41 (>60)
[2021-12-08] MEDS: MORPHINE SULFATE INJ 4 MG IVP PRN ×3 (02:41→20:33)
[2021-12-08 02:44] LABS: CKMB % 2.5 % (<4); CREATINE KINASE MB 1.9 ng/mL (0-4.0)
[2021-12-08 08:33] LABS: CKMB % 2.5 % (<4); CREATINE KINASE MB 1.7 ng/mL (0-4.0)
[2021-12-08] MEDS ORDERED: LR 1,000 ML IV 1,000 ML IV ONE (08:46)
[2021-12-08] MEDS ORDERED: LEVSIN/MAALOX/LIDOC VISC PO ONE (09:14)
[2021-12-08] MEDS: CLARITIN PO SCH (10:27)
[2021-12-08] MEDS: PLAVIX PO SCH (10:27)
[2021-12-08] MEDS: PROTONIX TAB 40 MG PO SCH (10:28)
[2021-12-08] MEDS: NORVASC TAB 10 MG PO SCH (10:28)
[2021-12-08] MEDS: HYDROCHLOROTHIAZIDE 12.5 MG CAP PO SCH (10:28)
[2021-12-08] MEDS: LIPITOR TAB 20 MG PO SCH (10:29)
[2021-12-08] MEDS: PEPCID TAB 20 MG PO SCH (10:29)
[2021-12-08] MEDS: LINZESS PO SCH (10:29)
[2021-12-08] MEDS: BENICAR TAB 40 MG PO SCH (10:30)
[2021-12-08] MEDS: LOVENOX INJ 40 MG SYR SC SCH (10:30)
[2021-12-08] MEDS: ZEBETA TAB 5 MG PO SCH (10:45)
--- NOTE | 2021-12-08 11:27 | RAD ---
HISTORYAbdominal painSTUDYAcute abdominal seriesCOMPARISONNoneFINDINGSHeart is mildly enlarged. No congestive heart failure is noted. The lung [place] are clear. No pleural effusions are identified. Abdominal gas pattern is nonspecific and nonobstructive. No pneumoperitoneum is identified. No abnormal masses or abnormal calcifications are identified. Regional skeleton is intact.IMPRESSIONUnremarkable acute abdominal seriesElectronically signed by: SHIRA WU (Dec 08, 2021 11:25:55)
[2021-12-08] MEDS ORDERED: LINZESS PO STA (13:26)
[2021-12-08] MEDS ORDERED: LEVSIN/MAALOX/LIDOC VISC PO PRN (14:07)
[2021-12-09] MEDS: NS 1,000 ML IV 1,000 ML IV SCH ×2 (01:29→17:00)
[2021-12-09 06:50] LABS: BASOPHILS % (AUTO) 0.8 % (0.2-1.0); EOSINOPHILS # (AUTO) 0.1 x10^3/uL (0.0-0.2); EOSINOPHILS % (AUTO) 2.9 % (0.9-2.9); HEMATOCRIT 32.3 % (36.0-47.0); HEMOGLOBIN 11.1 g/dL (12.0-16.0); LYMPHOCYTES # (AUTO) 1.3 X10^3/uL (1.3-2.9); LYMPHOCYTES % (AUTO) 36.3 % (21.0-51.0); MEAN CORPUSCULAR HEMOGLOBIN 31.4 pg (27.0-34.0); MEAN CORPUSCULAR HGB CONC 34.2 g/dL (33.0-35.0); MEAN CORPUSCULAR VOLUME 91.8 fL (80.0-100.0); MEAN PLATELET VOLUME 8.4 fL (7.4-11.0); MONOCYTES # (AUTO) 0.3 x10^3/uL (0.3-0.8); MONOCYTES % (AUTO) 9.3 % (0.0-13.0); NEUTROPHILS # (AUTO) 1.8 x10^3/uL (2.2-4.8); NEUTROPHILS % (AUTO) 50.7 % (42.0-75.0); RED BLOOD COUNT 3.52 X10^6/uL (3.5-5.4); RED CELL DISTRIBUTION WIDTH 14.1 % (11.6-16.5); WHITE BLOOD COUNT 3.6 X10^3/uL (3.6-10.0)
[2021-12-09 07:13] LABS: ALANINE AMINOTRANSFERASE 26 Units/L (12-78); ALBUMIN 3.2 g/dL (3.4-5.0); ALKALINE PHOSPHATASE 37 Units/L (46-116); ASPARTATE AMINO TRANSFERASE 34 Units/L (15-37); BLOOD UREA NITROGEN 27 mg/dL (7-18); CALCIUM 8.1 mg/dL (8.5-10.1); CARBON DIOXIDE 23.5 mmol/L (21-32); CHLORIDE 109 mmol/L (98-107); COR CA(FOR HYPOALB) 8.7 mg/dL (8.5-10.1); CREATININE 0.84 mg/dL (0.55-1.02); SODIUM 141 mmol/L (136-145); TOTAL PROTEIN 6.6 g/dL (6.4-8.2); eGFR NON BLACK RACES > 60 (>60)
[2021-12-09] MEDS: BENICAR TAB 40 MG PO SCH (08:13)
[2021-12-09] MEDS: LINZESS PO SCH (08:14)
[2021-12-09] MEDS: HYDROCHLOROTHIAZIDE 12.5 MG CAP PO SCH (08:14)
[2021-12-09] MEDS: CLARITIN PO SCH (08:14)
[2021-12-09] MEDS: NORVASC TAB 10 MG PO SCH (08:15)
[2021-12-09] MEDS: LIPITOR TAB 20 MG PO SCH (08:15)
[2021-12-09] MEDS: LOVENOX INJ 40 MG SYR SC SCH (08:15)
[2021-12-09] MEDS: ZEBETA TAB 5 MG PO SCH (08:16)
[2021-12-09] MEDS: PLAVIX PO SCH (08:16)
[2021-12-09] MEDS: PROTONIX TAB 40 MG PO SCH (08:16)
[2021-12-09] MEDS: PEPCID TAB 20 MG PO SCH (08:16)
[2021-12-09] MEDS: MORPHINE SULFATE INJ 4 MG IVP PRN ×4 (09:35→23:55)
[2021-12-09] MEDS ORDERED: ZOFRAN INJ 4 MG VIAL IVP PRN (09:38)
[2021-12-09] MEDS ORDERED: XANAX PO PRN (09:45)
[2021-12-09] MEDS: ASPIRIN EC 81 MG PO SCH (09:54)
[2021-12-09] MEDS: TRICOR TAB 145 MG PO SCH (09:54)
[2021-12-09] MEDS: ZOFRAN INJ 4 MG VIAL IVP PRN ×3 (09:55→23:55)
--- NOTE | 2021-12-09 15:42 | CT ---
HISTORYRUQ abdomen PAINSTUDYCT abdomen pelvis with IV contrastCOMPARISONX-ray E 12/08/2021TECHNIQUEMultiple axial images of the abdomen and pelvis were obtained from the lung bases to the pubic symphysis after the administration of IV contrast. 100 cc Omnipaque 350 IV contrast and oral contrast. Dose reduction techniques including Automated Exposure Control (AEC) and adjustment of mA and kV were utilized.FINDINGSThe visualized portions of the lung bases suggest minimal atelectasis.Mild fatty infiltration of the liver. No focal hepatic splenic abnormality is seen.Prior cholecystectomy. No biliary ductal dilation.No pancreatic abnormality is seen.The adrenal glands appear normal.Tiny sub cm cyst is suspected in the mid right kidney. No nephrolithiasis or hydronephrosis. Phleboliths are seen in pelvis. Ureters and bladder appear normal.Diverticula are seen in the descending and sigmoid colon without evidence of diverticulitis. GI contrast reaches the cecum. Normal appearing appendix is seen. Possible wall thickening is seen in the distal esophagus. Consider possible esophagitis.No abnormalities are seen of the reproductive organs.Abdominal aorta is normal in size. Diffuse atherosclerotic calcifications are seen in the abdominal aorta.Small likely reactive periportal lymph nodes are seen.No free intraperitoneal air or fluid is seen.No acute bony abnormality is seen.IMPRESSIONPossible esophagitis changes. Recommend further evaluation with endoscopy or esophagram.Left-sided colonic diverticula are seen without evidence of diverticulitis.Electronically signed by: Colten Coleman (Dec 09, 2021 15:40:42)
[2021-12-10] MEDS: NS 1,000 ML IV 1,000 ML IV SCH (02:27)
[2021-12-10] MEDS: MORPHINE SULFATE INJ 4 MG IVP PRN ×2 (05:15→09:48)
[2021-12-10] MEDS: ZOFRAN INJ 4 MG VIAL IVP PRN ×2 (05:16→09:49)
[2021-12-10 06:48] LABS: BASOPHILS % (AUTO) 1.1 % (0.2-1.0); EOSINOPHILS # (AUTO) 0.1 x10^3/uL (0.0-0.2); EOSINOPHILS % (AUTO) 3.2 % (0.9-2.9); HEMATOCRIT 33.1 % (36.0-47.0); HEMOGLOBIN 11.2 g/dL (12.0-16.0); LYMPHOCYTES # (AUTO) 1.2 X10^3/uL (1.3-2.9); LYMPHOCYTES % (AUTO) 41.2 % (21.0-51.0); MEAN CORPUSCULAR HEMOGLOBIN 31.2 pg (27.0-34.0); MEAN CORPUSCULAR HGB CONC 33.8 g/dL (33.0-35.0); MEAN CORPUSCULAR VOLUME 92.4 fL (80.0-100.0); MEAN PLATELET VOLUME 8.3 fL (7.4-11.0); MONOCYTES # (AUTO) 0.3 x10^3/uL (0.3-0.8); MONOCYTES % (AUTO) 8.7 % (0.0-13.0); NEUTROPHILS # (AUTO) 1.4 x10^3/uL (2.2-4.8); NEUTROPHILS % (AUTO) 45.8 % (42.0-75.0); RED BLOOD COUNT 3.59 X10^6/uL (3.5-5.4); RED CELL DISTRIBUTION WIDTH 14.4 % (11.6-16.5)
[2021-12-10 07:08] LABS: ALANINE AMINOTRANSFERASE 28 Units/L (12-78); ALBUMIN 3.3 g/dL (3.4-5.0); ALKALINE PHOSPHATASE 39 Units/L (46-116); ASPARTATE AMINO TRANSFERASE 35 Units/L (15-37); BLOOD UREA NITROGEN 20 mg/dL (7-18); CALCIUM 8.1 mg/dL (8.5-10.1); CARBON DIOXIDE 26.3 mmol/L (21-32); CHLORIDE 107 mmol/L (98-107); COR CA(FOR HYPOALB) 8.7 mg/dL (8.5-10.1); CREATININE 1.04 mg/dL (0.55-1.02); MAGNESIUM 1.9 mg/dL (1.7-2.9); SODIUM 141 mmol/L (136-145); TOTAL PROTEIN 6.7 g/dL (6.4-8.2); eGFR NON BLACK RACES 57 (>60)
[2021-12-10 08:04] VITALS: BP 126/56
[2021-12-10] MEDS: LOVENOX INJ 40 MG SYR SC SCH ×2 (09:32→09:39)
[2021-12-10] MEDS: PROTONIX TAB 40 MG PO SCH (09:32)
[2021-12-10] MEDS: LIPITOR TAB 20 MG PO SCH (09:33)
[2021-12-10] MEDS: PLAVIX PO SCH (09:34)
[2021-12-10] MEDS: HYDROCHLOROTHIAZIDE 12.5 MG CAP PO SCH (09:34)
[2021-12-10] MEDS: CLARITIN PO SCH (09:35)
[2021-12-10] MEDS: BENICAR TAB 40 MG PO SCH (09:35)
[2021-12-10] MEDS: PEPCID TAB 20 MG PO SCH (09:36)
[2021-12-10] MEDS: ZEBETA TAB 5 MG PO SCH (09:36)
[2021-12-10] MEDS: NORVASC TAB 10 MG PO SCH (09:37)
[2021-12-10] MEDS: ASPIRIN EC 81 MG PO SCH (09:37)
[2021-12-10] MEDS: TRICOR TAB 145 MG PO SCH (09:38)
[2021-12-10] MEDS: LINZESS PO SCH (09:38)
== END 2021-12-10 11:00 | disposition home or self-care (01) ==
LOC: ER 17:39 → MED/SURG 17:39
PROVIDERS: ADMIT Family Medicine; ATTEND Obstetrics & Gynecology Obstetrics
DX: R51.9 Headache, unspecified; I25.10 Atherosclerotic heart disease of native coronary artery without angina pectoris; I10 Essential (primary) hypertension; R94.31 Abnormal electrocardiogram [ECG] [EKG]; E11.65 Type 2 diabetes mellitus with hyperglycemia; R07.89 Other chest pain; R10.84 Generalized abdominal pain; K21.9 Gastro-esophageal reflux disease without esophagitis; E78.2 Mixed hyperlipidemia

== ENCOUNTER 2023-01-02 19:34 | Inpatient (IN) ==
[2023-01-02] MEDS ORDERED: NS 1,000 ML IV 1,000 ML IV ONE (20:22)
[2023-01-02] MEDS ORDERED: ZOFRAN INJ 4 MG VIAL IVP ONE ×2 (20:22→23:18)
--- NOTE | 2023-01-02 20:22 | ED.ABDFE ---
HPI Time Seen Time Seen by Provider: 01/02/23 20:21 PCP Primary Care Physician: BONILLA Marquez Doctors Chief Complaint Comments: Patient presents with abdominal pain.Patient has had pain for 3 days.She states that she lives alone and has a h/o diverticu litis and has had increased pain in her LLQ today. Patient denies:fever,hematemesis,weakness,chest pain, sob.Patient has not had colon resection secondary to diverticulitis. Chief Complaint:: PT AMBULATORY IN ED WITH C/O ABD PAIN. PT STATES ABD HURTS ALL OVER BUT WORSE IN LEFT LOWER ABD. LBM YESTERDAY. ALSO C/O NAUSEA. COVID-19 Coronavirus risk:travel/contact w/high risk person: No Has patient experienced Coronavirus symptoms: No Source History Provided: Patient Mode of arrival Mode of Arrival: Ambulatory Timing Onset of Chief Complaint: 01/02/23 PMH PMH Past Medical History: Yes Past Medical History: Anxiety, Arthritis, Coronary Artery Disease, Depression, Diabetes, Dyslipidemia, GERD, Headaches, Hypertension, Hypothyroidism, Kidney Stones and Renal Disease Past Surgical History: Yes Surgical History: Angioplasty/Stents and Cholecystectomy Past Surgical History Comment: LEFT EYE Family History History of Family Medical Conditions: Yes Family Medical History: Diabetes Mellitus, Cancer, OR, Coronary Artery Disease, Heart Failure and Hypertension Social History Does patient currently use any type of tobacco product: No Have you used tobacco products in the last 12 months: No Type of Tobacco Use: None Does any household member use tobacco: No Alcohol Use: None Do you use any recreational Drugs:: No Lives With: Alone Lives Where: Home Travel Risk Coronavirus risk:travel/contact w/high risk person: No Has patient experienced Coronavirus symptoms: No Infectious screening In the last 2 months have you had wt loss of >10#?: NO Have you had fever, night sweats or hemotysis?: No Have you traveled outside the country in the last 6 months?: No Isolation: Standard ROS Review of Systems Constitutional: Loss of Appetite; negative Fever Eyes: No Symptoms Reported ENTM: No Symptoms Reported Respiratoy: No Symptoms Reported Cardiovascular: No Symptoms Reported Gastrointestinal/Abdominal: No Symptoms Reported, Abdominal Pain and Nausea; negative Diarrhea Genitourinary: No Symptoms Reported Neurological: Weakness Musculoskeletal: negative Back Pain Integumentary: No Symptoms Reported Hematologic/Lymphatic: No Symptoms Reported Endocrine: No Symptoms Reported Psychiatric: No Symptoms Reported All Other Systems: Reviewed and Negative PE Vital Signs Vitals: Temperature 98.2 F Pulse Rate [Left Radial] 72 Pulse Rate 70 Respiratory Rate 20 Blood Pressure [Right Arm] 168/71 Blood Pressure [Left Arm] 126/56 Blood Pressure 133/63 O2 Sat by Pulse Oximetry 99 General Limitations: No Limitations and Language Barrier General Appearance: Alert and In No Apparent Distress Head Head Exam: Normal Inspection Eyes Eye exam: Normal Appearance ENT ENT Exam: Normal Exam Neck Neck Exam: Normal Inspection Chest Chest Inspection: Normal Inspection Respiratory Respiratory Exam: Normal Lung Sounds Bilat Respiratory Exam: Bilateral: Clear to Auscultation Cardiovascular Cardiovascular Exam: Regular Rate and Normal Rhythm Abdominal Exam Abdominal Exam: Distention, Dimnished Bowel Sounds and Hypoactive Bowel Sounds Abdominal Tenderness: LLQ Rectal Rectal Exam: Deferred Back Back Exam: Normal Inspection Extremeties Extremities Exam: Normal Inspection Neurologic Neurological Exam: Alert, Oriented X3 and CN II-XII Intact Psychiatric Psychiatric Exam: Normal Affect and Normal Mood Skin Skin Exam: Warm, Dry and Intact MDM Differential Diagnosis Differential Diagnosis- Considerations may include:: Diverticular disease, Inflammatory BD, Ischemic Bowel and Other (comments) Other differential diagnosis: Obstruction,Perforation COURSE Treatment Treatment: Patient was brought to a monitored room and was placed on a telemerty monitor.IV access was initiated and patient was given morphine 1mg iv/zofrn 4mg iv,pepcid 20mg iv,NS 1 liter iv. Patient's pain persisted and an abd/pelvic CT w/ iv contrast was done which revealed Moderate-severity acute diverticulitis of the decending colon. Patient is allergic to ciprofloxacin and flagyl and was given zosyn 3.375 and morphine 2mg/zofran 4mg iv for pain. Discused case with Dr Flores .Dr Flores has accepted patient to her service for further inpatient management. [facility] Labs Reviewed Laboratory Results Reviewed?: Yes Result Diagrams: 01/02/23 20:40 01/02/23 20:40 Laboratory: WBC 7.3 X10^3/uL (3.6-10.0) 01/02/23 20:40 RBC 3.25 X10^6/uL (3.5-5.4) L 01/02/23 20:40 Hgb 10.6 g/dL (12.0-16.0) L 01/02/23 20:40 Hct 31.1 % (36.0-47.0) L 01/02/23 20:40 MCV 95.5 fL (80.0-100.0) 01/02/23 20:40 MCH 32.5 pg (27.0-34.0) 01/02/23 20:40 MCHC 34.0 g/dL (33.0-35.0) 01/02/23 20:40 RDW 15.1 % (11.6-16.5) 01/02/23 20:40 Plt Count 242 X10^3/uL (150.0-450.0) 01/02/23 20:40 MPV 8.4 fL (7.4-11.0) 01/02/23 20:40 Neut % (Auto) 68.0 % (42.0-75.0) 01/02/23 20:40 Lymph % (Auto) 23.0 % (21.0-51.0) 01/02/23 20:40 [place] % (Auto) 7.1 % (0.0-13.0) 01/02/23 20:40 Eos % (Auto) 1.2 % (0.9-2.9) 01/02/23 20:40 Baso % (Auto) 0.7 % (0.2-1.0) 01/02/23 20:40 Neut # (Auto) 5.0 x10^3/uL (2.2-4.8) H 01/02/23 20:40 Lymph # (Auto) 1.7 X10^3/uL (1.3-2.9) 01/02/23 20:40 [place] # (Auto) 0.5 x10^3/uL (0.3-0.8) 01/02/23 20:40 Eos # (Auto) 0.1 x10^3/uL (0.0-0.2) 01/02/23 20:40 Baso # (Auto) 0.0 X10^3/uL (0.0-0.1) 01/02/23 20:40 Absolute Nucleated RBC 0.1 /100WBC 01/02/23 20:40 Sodium 138 mmol/L (136-145) 01/02/23 20:40 Corrected Sodium TNP 01/02/23 20:40 Potassium 4.0 mmol/L (3.5-5.1) 01/02/23 20:40 Chloride 104 mmol/L (98-107) 01/02/23 20:40 Carbon Dioxide 25.7 mmol/L (21-32) 01/02/23 20:40 BUN 31 mg/dL (7-18) H 01/02/23 20:40 Creatinine 1.21 mg/dL (0.55-1.02) H 01/02/23 20:40 Est GFR (MDRD) Af Amer 57 (>60) L 01/02/23 20:40 Est GFR (MDRD) Non-Af 47 (>60) L 01/02/23 20:40 Glucose 109 mg/dL (65-99) H 01/02/23 20:40 Lactic Acid 0.8 mmol/L (0.4-2.0) 01/02/23 20:40 Calcium 8.9 mg/dL (8.5-10.1) 01/02/23 20:40 Corrected Calcium TNP 01/02/23 20:40 Total Bilirubin 0.40 mg/dL (0.2-1.0) 01/02/23 20:40 AST 27 Units/L (15-37) 01/02/23 20:40 ALT 20 Units/L (12-78) 01/02/23 20:40 Alkaline Phosphatase 52 Units/L (46-116) 01/02/23 20:40 C-Reactive Protein 12.20 mg/L (0-3.0) H 01/02/23 20:40 Total Protein 6.8 g/dL (6.4-8.2) 01/02/23 20:40 Albumin 3.6 g/dL (3.4-5.0) 01/02/23 20:40 Globulin 3.2 g/dL (2.5-4.5) 01/02/23 20:40 Albumin/Globulin Ratio 1.1 Ratio (1.1-2.1) 01/02/23 20:40 Amylase 40 Units/L (25-115) 01/02/23 20:40 Lipase 126 Units/L (73-393) 01/02/23 20:40 Specimen Type Clean catch urine 01/02/23 21:35 Urine Color Yellow (YELLOW) 01/02/23 21:35 Urine Appearance Clear (CLEAR) 01/02/23 21:35 Urine pH 5.0 (5.0 - 8.0) 01/02/23 21:35 Ur Specific [place] 1.020 (1.000-1.030) 01/02/23 21:35 Urine Protein Negative (NEGATIVE) 01/02/23 21:35 Urine Glucose (UA) Negative (NEGATIVE) 01/02/23 21:35 Urine Ketones Negative (NEGATIVE) 01/02/23 21:35 Urine Blood 3+ (NEGATIVE) 01/02/23 21:35 Urine Nitrite Negative (NEGATIVE) 01/02/23 21:35 Urine Bilirubin Negative (NEGATIVE) 01/02/23 21:35 Urine Urobilinogen Normal (NORMAL) 01/02/23 21:35 Ur Leukocyte Esterase Negative (NEGATIVE) 01/02/23 21:35 Urine RBC 3-5 /HPF (0-3) A 01/02/23 21:35 Urine WBC None seen /HPF (0-5) 01/02/23 21:35 Ur Squamous Epith Cells Rare /HPF (NEGATIVE) 01/02/23 21:35 Urine Bacteria Negative /HPF (NEGATIVE) 01/02/23 21:35 Ur Culture Indicated? No/not indicated 01/02/23 21:35 XRAY XRAY Interpreted by: Radiologist X-ray Results: Abd/pelvis CT w/ iv contrast( Patient refused oral contrast): Moderate severity acute diverticulitis of the descending colon with wall thickening and pericolonic inflammatio. No gross perforation or abscess Opioid Opioid Risk Tool Age ([place] box if 16-45): No History of Preadolescent Sexual Abuse: No Total: 0 Total Score Risk Category: Low Risk Copyright: Terrance CROWDER predicting aberrant behaviors Discharge Plan Diagnosis Discharge Problem: Acute diverticulitis of intestine, Acute dehydration Discharge Plan Patient Disposition: 09 ADMITTED INPATIENT Condition: Stable Prescriptions: No Action nitroglycerin 0.4 mg tablet, sublingual 0.4 mg sublingual Q5M MDD 3 PRN (Reason: chest pain) Qty: 20 0RF Rx Instructions: do not exceed 3 doses per episode potassium chloride 10 mEq capsule, extended release 1 tab PO BID atorvastatin 20 mg tablet 1 tab PO QDAY bisoprolol-hydrochlorothiazide 10-6.25 mg tablet 1 tab PO QDAY ondansetron HCl 8 mg tablet 1 tab PO Q8H PRN famotidine 40 mg tablet 1 tab PO BID clopidogrel 75 mg tablet 1 tab PO QDAY tramadol 50 mg tablet 1 tab PO TID PRN amlodipine 10 mg tablet 1 tab PO QDAY pantoprazole 40 mg tablet,delayed release (DR/EC) 1 tab PO QDAY olmesartan-hydrochlorothiazide 40-12.5 mg tablet 1 tab PO QDAY fenofibrate 160 mg tablet 1 tab PO QDAY Linzess 72 mcg capsule 1 cap PO QAM Health Concerns: Post Hospitalization: new medications and changes needed to prevent readmission or further decline. Pt educated and given instructions on all concerns. Plan of Treatment: Continue with present treatment and follow up plan. Pt is to keep follow up appointment as instructed and take medications as ordered. Orders to Discharge Patient Discharge Orders: Transfer (Routine); Ordered 01/02/23 Ordered By: Celsa Villatoro Follow ups/Referrals Follow ups/Referrals: MELANI CRYSTAL [Primary Care Provider] - 3 days
[2023-01-02] MEDS ORDERED: PEPCID 20 MG VIAL 20 MG in NS 50 ML IV 50 ML IV ONE (20:25)
[2023-01-02] MEDS ORDERED: ZOFRAN INJ 4 MG VIAL ONE ×2 (20:28→23:22)
[2023-01-02] MEDS ORDERED: NS 1,000 ML IV 1,000 ML ONE (20:28)
[2023-01-02] MEDS ORDERED: NS 50 ML IV 50 ML IV ONE (20:29)
[2023-01-02] MEDS ORDERED: PEPCID 20 MG VIAL ONE (20:29)
[2023-01-02 21:11] LABS: WHITE BLOOD COUNT 7.3 X10^3/uL (3.6-10.0)
[2023-01-02 21:16] LABS: BASOPHILS % (AUTO) 0.7 % (0.2-1.0); EOSINOPHILS # (AUTO) 0.1 x10^3/uL (0.0-0.2); EOSINOPHILS % (AUTO) 1.2 % (0.9-2.9); HEMATOCRIT 31.1 % (36.0-47.0); HEMOGLOBIN 10.6 g/dL (12.0-16.0); LYMPHOCYTES # (AUTO) 1.7 X10^3/uL (1.3-2.9); MEAN CORPUSCULAR HEMOGLOBIN 32.5 pg (27.0-34.0); MEAN CORPUSCULAR VOLUME 95.5 fL (80.0-100.0); MEAN PLATELET VOLUME 8.4 fL (7.4-11.0); MONOCYTES # (AUTO) 0.5 x10^3/uL (0.3-0.8); MONOCYTES % (AUTO) 7.1 % (0.0-13.0); RED BLOOD COUNT 3.25 X10^6/uL (3.5-5.4); RED CELL DISTRIBUTION WIDTH 15.1 % (11.6-16.5)
[2023-01-02 21:17] LABS: ALANINE AMINOTRANSFERASE 20 Units/L (12-78); ALBUMIN 3.6 g/dL (3.4-5.0); ALKALINE PHOSPHATASE 52 Units/L (46-116); AMYLASE 40 Units/L (25-115); ASPARTATE AMINO TRANSFERASE 27 Units/L (15-37); BLOOD UREA NITROGEN 31 mg/dL (7-18); CALCIUM 8.9 mg/dL (8.5-10.1); CARBON DIOXIDE 25.7 mmol/L (21-32); CHLORIDE 104 mmol/L (98-107); CREATININE 1.21 mg/dL (0.55-1.02); LIPASE 126 Units/L (73-393); SODIUM 138 mmol/L (136-145); TOTAL PROTEIN 6.8 g/dL (6.4-8.2); eGFR NON BLACK RACES 47 (>60)
[2023-01-02 21:22] LABS: LACTIC ACID 0.8 mmol/L (0.4-2.0)
[2023-01-02 21:47] LABS: BILIRUBIN,URINE NEGATIVE (NEGATIVE); BLOOD/HEMOGLOBIN,URINE 3+ (NEGATIVE); GLUCOSE, URINE NEGATIVE (NEGATIVE); KETONES,URINE NEGATIVE (NEGATIVE); LEUKOCYTE ESTERASE ,URINE NEGATIVE (NEGATIVE); NITRITES,URINE NEGATIVE (NEGATIVE); PROTEIN,URINE NEGATIVE (NEGATIVE); UROBILINOGEN,URINE NORMAL (NORMAL)
[2023-01-02 21:54] LABS: COLOR,URINE YELLOW (YELLOW)
[2023-01-02 21:55] LABS: APPEARANCE,URINE CLEAR (CLEAR); BACTERIA,URINE NEGATIVE /HPF (NEGATIVE); SQUAMOUS EPITHELIAL CELL,UR RARE /HPF (NEGATIVE)
[2023-01-02] MEDS ORDERED: TORADOL 30 MG VIAL IVP ONE (22:19)
[2023-01-02] MEDS ORDERED: TORADOL 30 MG VIAL ONE (22:21)
[2023-01-02] MEDS ORDERED: MORPHINE SULFATE INJ 2 MG INJ IVP ONE (23:18)
[2023-01-02] MEDS ORDERED: ZOSYN VIAL 3.375 GRAMS 3.375 G in NS 100 ML IV 100 ML IV ONE (23:18)
[2023-01-02] MEDS ORDERED: ZOSYN VIAL 3.375 GRAMS IV ONE (23:22)
[2023-01-02] MEDS ORDERED: MORPHINE SULFATE INJ 2 MG INJ ONE (23:22)
[2023-01-02] MEDS ORDERED: NS 100 ML IV 100 ML ONE (23:23)
[2023-01-03] MEDS ORDERED: NITROSTAT SL PRN (00:16)
[2023-01-03] MEDS ORDERED: PEPCID 20 MG VIAL 20 MG in NS 50 ML IV 50 ML IV SCH ×2 (00:16→21:00)
[2023-01-03 01:47] VITALS: BMI 35.0
[2023-01-03] MEDS ORDERED: NS 1,000 ML IV 1,000 ML ONE (05:19)
[2023-01-03] MEDS: ZOSYN VIAL 3.375 GRAMS 3.375 G in NS 100 ML IV 100 ML IV SCH ×3 (05:33→21:31)
[2023-01-03 06:04] LABS: ALANINE AMINOTRANSFERASE 22 Units/L (12-78); ALBUMIN 3.3 g/dL (3.4-5.0); ALKALINE PHOSPHATASE 46 Units/L (46-116); ASPARTATE AMINO TRANSFERASE 34 Units/L (15-37); BLOOD UREA NITROGEN 31 mg/dL (7-18); CALCIUM 8.6 mg/dL (8.5-10.1); CARBON DIOXIDE 24.2 mmol/L (21-32); CHLORIDE 106 mmol/L (98-107); COR CA(FOR HYPOALB) 9.2 mg/dL (8.5-10.1); CREATININE 1.32 mg/dL (0.55-1.02); SODIUM 139 mmol/L (136-145); TOTAL PROTEIN 6.2 g/dL (6.4-8.2); eGFR NON BLACK RACES 43 (>60)
[2023-01-03] MEDS ORDERED: NORCO 5/325 MG TAB PO PRN (06:19)
[2023-01-03 06:20] LABS: BASOPHILS % (AUTO) 0.4 % (0.2-1.0); EOSINOPHILS # (AUTO) 0.1 x10^3/uL (0.0-0.2); EOSINOPHILS % (AUTO) 1.8 % (0.9-2.9); HEMATOCRIT 30.2 % (36.0-47.0); HEMOGLOBIN 10.2 g/dL (12.0-16.0); LYMPHOCYTES # (AUTO) 1.5 X10^3/uL (1.3-2.9); LYMPHOCYTES % (AUTO) 22.7 % (21.0-51.0); MEAN CORPUSCULAR HEMOGLOBIN 32.2 pg (27.0-34.0); MEAN CORPUSCULAR HGB CONC 33.9 g/dL (33.0-35.0); MEAN PLATELET VOLUME 7.8 fL (7.4-11.0); MONOCYTES # (AUTO) 0.5 x10^3/uL (0.3-0.8); MONOCYTES % (AUTO) 7.9 % (0.0-13.0); NEUTROPHILS # (AUTO) 4.5 x10^3/uL (2.2-4.8); NEUTROPHILS % (AUTO) 67.2 % (42.0-75.0); RED BLOOD COUNT 3.17 X10^6/uL (3.5-5.4); RED CELL DISTRIBUTION WIDTH 14.7 % (11.6-16.5); WHITE BLOOD COUNT 6.7 X10^3/uL (3.6-10.0)
[2023-01-03] MEDS: LIPITOR TAB 20 MG PO SCH (08:15)
[2023-01-03] MEDS: NORVASC TAB 10 MG PO SCH (08:15)
[2023-01-03] MEDS: ZEBETA TAB 5 MG PO SCH ×3 (08:16→10:17)
[2023-01-03] MEDS: BENICAR TAB 40 MG PO SCH (08:16)
[2023-01-03] MEDS: HYDROCHLOROTHIAZIDE 25 MG TAB PO SCH ×2 (08:18→08:57)
[2023-01-03] MEDS: LOVENOX INJ 40 MG SYR SC SCH (08:55)
[2023-01-03] MEDS: PATIENT'S HOME MEDICATION (Linaclotide [Linzess] 72 mcg capsule) PO SCH (08:57)
[2023-01-03] MEDS ORDERED: OLMESARTAN HYDROCHLOROTHIAZIDE PO SCH (09:00)
[2023-01-03] MEDS ORDERED: ZOFRAN INJ 4 MG VIAL IVP SCH (09:00)
--- NOTE | 2023-01-03 09:32 | CT ---
HISTORYSEVERE STOMACH PAINS, NAUSEASTUDYABDOMEN/PELVIS WITH CONCOMPARISONnoneTECHNIQUEMultiple axial images of the abdomen and pelvis were obtained from the lung bases to the pubic symphysis AFTER the administration of IV contrast. Dose reduction techniques including Automated Exposure Control (AEC) and adjustment of mA and kV were utilized.FINDINGSLung bases are clear. The abdominal aorta tapers normally with advanced calcified atherosclerotic plaque.Diffuse fatty infiltration of the liver. Prior cholecystectomy. Normal right adrenal gland. Nonobstructed right kidney. Fatty left adrenal nodule consistent with benign adenoma. Nonobstructed left kidney. Normal spleen contours. Atrophy of the pancreas. Nonobstructed stomach.Inflammation, wall thickening and diverticular disease involving the distal descending colon consistent with acute diverticulitis. No gross free air or abscess formation. No lymphadenopathy. Sclerotic focus right ischial tuberosity and similar on the left suggest small bone islands. Degenerative spinal changes.IMPRESSIONModerate-severity acute diverticulitis of the descending colon with wall thickening and pericolonic inflammation. No gross perforation or abscess.Electronically signed by: Braeden Neal (Jan 02, 2023 22:37:20)
[2023-01-03] MEDS: TYLENOL 325 MG TAB PO PRN ×2 (10:45→15:53)
[2023-01-03] MEDS: ZOFRAN TAB 4 MG PO PRN (15:54)
[2023-01-03] MEDS ORDERED: ULTRAM PO PRN (21:01)
[2023-01-04 05:03] LABS: BASOPHILS % (AUTO) 0.8 % (0.2-1.0); EOSINOPHILS # (AUTO) 0.1 x10^3/uL (0.0-0.2); EOSINOPHILS % (AUTO) 2.5 % (0.9-2.9); HEMATOCRIT 28.5 % (36.0-47.0); HEMOGLOBIN 9.8 g/dL (12.0-16.0); LYMPHOCYTES % (AUTO) 18.4 % (21.0-51.0); MEAN CORPUSCULAR HEMOGLOBIN 32.6 pg (27.0-34.0); MEAN CORPUSCULAR HGB CONC 34.3 g/dL (33.0-35.0); MEAN CORPUSCULAR VOLUME 94.8 fL (80.0-100.0); MEAN PLATELET VOLUME 8.1 fL (7.4-11.0); MONOCYTES # (AUTO) 0.4 x10^3/uL (0.3-0.8); MONOCYTES % (AUTO) 6.4 % (0.0-13.0); NEUTROPHILS % (AUTO) 71.9 % (42.0-75.0); RED CELL DISTRIBUTION WIDTH 15.2 % (11.6-16.5); WHITE BLOOD COUNT 5.5 X10^3/uL (3.6-10.0)
[2023-01-04 05:09] LABS: ALANINE AMINOTRANSFERASE 26 Units/L (12-78); ALBUMIN 3.3 g/dL (3.4-5.0); ALKALINE PHOSPHATASE 45 Units/L (46-116); ASPARTATE AMINO TRANSFERASE 35 Units/L (15-37); BLOOD UREA NITROGEN 22 mg/dL (7-18); CALCIUM 8.6 mg/dL (8.5-10.1); CARBON DIOXIDE 25.4 mmol/L (21-32); CHLORIDE 104 mmol/L (98-107); COR CA(FOR HYPOALB) 9.2 mg/dL (8.5-10.1); CREATININE 1.07 mg/dL (0.55-1.02); SODIUM 139 mmol/L (136-145); TOTAL PROTEIN 6.6 g/dL (6.4-8.2); eGFR NON BLACK RACES 55 (>60)
[2023-01-04] MEDS: ZOSYN VIAL 3.375 GRAMS 3.375 G in NS 100 ML IV 100 ML IV SCH (05:15)
[2023-01-04] MEDS: ZOFRAN TAB 4 MG PO PRN (07:57)
[2023-01-04] MEDS: LOVENOX INJ 40 MG SYR SC SCH (08:00)
[2023-01-04] MEDS: HYDROCHLOROTHIAZIDE 25 MG TAB PO SCH (08:00)
[2023-01-04] MEDS: LIPITOR TAB 20 MG PO SCH (08:00)
[2023-01-04] MEDS: BENICAR TAB 40 MG PO SCH (08:00)
[2023-01-04] MEDS: ZEBETA TAB 5 MG PO SCH (08:01)
[2023-01-04] MEDS: NORVASC TAB 10 MG PO SCH (08:01)
[2023-01-04] MEDS: PATIENT'S HOME MEDICATION (Linaclotide [Linzess] 72 mcg capsule) PO SCH (08:37)
[2023-01-04] MEDS ORDERED: MORPHINE SULFATE INJ 2 MG INJ IVP ONE (09:35)
[2023-01-04] MEDS ORDERED: PEPCID TAB 40 MG PO SCH (09:45)
[2023-01-04] MEDS ORDERED: PLAVIX PO SCH (10:00)
[2023-01-04 12:20] VITALS: BP 127/58
== END 2023-01-04 12:33 | disposition home or self-care (01) | DRG 392 ==
LOC: ER 19:41 → MED/SURG 01-03 00:03
PROVIDERS: ADMIT Internal Medicine; ATTEND Obstetrics & Gynecology Obstetrics
DX: E03.8 Other specified hypothyroidism; R51.9 Headache, unspecified; E11.65 Type 2 diabetes mellitus with hyperglycemia; I10 Essential (primary) hypertension; K57.32 Diverticulitis of large intestine without perforation or abscess without bleeding; I25.10 Atherosclerotic heart disease of native coronary artery without angina pectoris; E78.2 Mixed hyperlipidemia; E86.0 Dehydration; K21.9 Gastro-esophageal reflux disease without esophagitis